=== PATIENT | female | born 1935 | race Caucasian/White ===

== ENCOUNTER 2017-06-23 00:12 | Emergency (ER) | payer MEDICARE, OTHER, MEDICAID ==
[~2017-06-23] VITALS: Ht 152.4 cm; Wt 90.0 kg
[~2017-06-23 00:12] MED LIST: ACET-1025 PO; ALB0.5UD IH; ALIS150T PO; AMLO5TAB16 PO; ASPI-1265 PO; ATOR20TA66 PO; CALC-793 PO; CLON-527 PO; DOCU100C23 PO; KEN0.1O TP; LEVA15HF4 INH; MAGN400C PO; METF500T PO; NITR0.4T48 SL; OMEP20TA5 PO; SIME125C77 PO; SYN0.1T PO; oxygen INH
[2017-06-23 01:09] LABS: BASOPHILS % (AUTO) 0.2 % (0-1); EOSINOPHILS # (AUTO) 0.1 X10'3 (0-0.9); EOSINOPHILS % (AUTO) 1.3 % (0-6); HEMATOCRIT 33.6 % (35.0-45.0); HEMOGLOBIN 11.2 g/dl (12.0-16.0); LYMPHOCYTES # (AUTO) 1.8 X10'3 (1.1-4.8); LYMPHOCYTES % (AUTO) 26.3 % (21-51); MEAN CORPUSCULAR HEMOGLOBIN 30.8 PG (27.0-31.0); MEAN CORPUSCULAR HGB CONC 33.5 % (33.0-36.5); MEAN CORPUSCULAR VOLUME 92.2 FL (78-98); MEAN PLATELET VOLUME 8.5 FL (7.4-10.4); MONOCYTES # (AUTO) 0.8 X10'3 (0-0.9); MONOCYTES % (AUTO) 11.3 % (2-12); NEUTROPHILS % (AUTO) 60.9 % (42-75); PLATELET COUNT 175 X10'3 (140-440); RED BLOOD COUNT 3.64 X10'6 (4.20-5.60); RED CELL DISTRIBUTION WIDTH 20.2 % (11.5-14.5); WHITE BLOOD COUNT 6.7 X10'3 (4.5-11.0)
[2017-06-23 01:11] LABS: INR 1.2 INR; PROTHROMBIN TIME 12.4 SECONDS (9.0-12.0)
[2017-06-23 01:17] LABS: ALANINE AMINOTRANSFERASE 24 U/L (12-78); ALBUMIN 3.6 G/DL (3.4-5.0); ALBUMIN/GLOBULIN RATIO 0.9 (1.1-1.5); ALKALINE PHOSPHATASE 49 IU/L (46-116); ANION GAP 13 (8-16); ASPARTATE AMINO TRANSFERASE 28 U/L (10-37); BILIRUBIN,TOTAL 0.7 MG/DL (0.1-1.0); BLOOD UREA NITROGEN 12 MG/DL (7-18); BUN/CREATININE RATIO 12.4 (6.6-38.0); CALCIUM 9.4 MG/DL (8.5-10.1); CHLORIDE 100 MMOL/L (99-107); CREATININE 0.97 MG/DL (0.40-0.90); GLUCOSE 150 MG/DL (70-104); POTASSIUM 3.1 MMOL/L (3.5-5.1); SODIUM 140 MMOL/L (135-145); TOTAL CARBON DIOXIDE 26.9 MMOL/L (24-32); TOTAL PROTEIN 7.5 G/DL (6.4-8.2); eGFR 55 ML/MIN
[2017-06-23 01:24] LABS: MAGNESIUM 1.1 MG/DL (1.5-2.4)
[2017-06-23] MEDS ORDERED: carVEDilol 3.125mg tablet PO STA (02:31)
[2017-06-23 02:47] VITALS: BP 154/79
== END 2017-06-23 03:34 | disposition home or self-care (01) ==
LOC: ER 00:12
DX: I49.3 Ventricular premature depolarization (principal); R00.2 Palpitations; I25.10 Atherosclerotic heart disease of native coronary artery without angina pectoris; I11.0 Hypertensive heart disease with heart failure; I50.9 Heart failure, unspecified; J44.9 Chronic obstructive pulmonary disease, unspecified; K21.9 Gastro-esophageal reflux disease without esophagitis; E78.00 Pure hypercholesterolemia, unspecified; E11.9 Type 2 diabetes mellitus without complications; E03.9 Hypothyroidism, unspecified; Z95.1 Presence of aortocoronary bypass graft; Z95.0 Presence of cardiac pacemaker; Z90.710 Acquired absence of both cervix and uterus; Z90.49 Acquired absence of other specified parts of digestive tract; Z60.2 Problems related to living alone; Z88.5 Allergy status to narcotic agent; Z88.2 Allergy status to sulfonamides; Z88.8 Allergy status to other drugs, medicaments and biological substances; Z88.1 Allergy status to other antibiotic agents; Z91.011 Allergy to milk products; Z79.82 Long term (current) use of aspirin; Z79.84 Long term (current) use of oral hypoglycemic drugs
CPT/HCPCS: 36415; 71045; 80053; 83735; 83880; 84484; 85025; 85610; 93005; 99285

== ENCOUNTER 2017-07-10 11:51 | Inpatient (IN) | payer MEDICARE, OTHER, MEDICAID ==
[~2017-07-10] VITALS: Ht 154.9 cm; Wt 89.0 kg
[2017-07-10 12:17] LABS: BASOPHILS % (AUTO) 0.3 % (0-1); EOSINOPHILS # (AUTO) 0.1 X10'3 (0-0.9); EOSINOPHILS % (AUTO) 1.3 % (0-6); HEMOGLOBIN 10.9 g/dl (12.0-16.0); MEAN CORPUSCULAR HEMOGLOBIN 32.2 PG (27.0-31.0); MEAN CORPUSCULAR HGB CONC 34.2 % (33.0-36.5); MEAN CORPUSCULAR VOLUME 94.1 FL (78-98); MEAN PLATELET VOLUME 8.4 FL (7.4-10.4); MONOCYTES % (AUTO) 13.5 % (2-12); NEUTROPHILS # (AUTO) 3.9 X10'3 (1.8-7.7); NEUTROPHILS % (AUTO) 56.9 % (42-75); PLATELET COUNT 189 X10'3 (140-440); RED CELL DISTRIBUTION WIDTH 21.5 % (11.5-14.5)
[2017-07-10 12:22] LABS: INR 1.2 INR; PARTIAL THROMBOPLASTIN TIME 28 SECONDS (22-32); PROTHROMBIN TIME 12.5 SECONDS (9.0-12.0)
[2017-07-10 12:26] LABS: ALANINE AMINOTRANSFERASE 29 U/L (12-78); ALBUMIN 3.3 G/DL (3.4-5.0); ALBUMIN/GLOBULIN RATIO 0.8 (1.1-1.5); ALKALINE PHOSPHATASE 51 IU/L (46-116); ANION GAP 11 (8-16); ASPARTATE AMINO TRANSFERASE 32 U/L (10-37); BILIRUBIN,TOTAL 0.7 MG/DL (0.1-1.0); BLOOD UREA NITROGEN 9 MG/DL (7-18); BUN/CREATININE RATIO 8.2 (6.6-38.0); CALCIUM 9.3 MG/DL (8.5-10.1); CHLORIDE 103 MMOL/L (99-107); GLUCOSE 139 MG/DL (70-104); SODIUM 141 MMOL/L (135-145); TOTAL CARBON DIOXIDE 26.8 MMOL/L (24-32); TOTAL PROTEIN 7.4 G/DL (6.4-8.2); eGFR 48 ML/MIN
[2017-07-10 12:31] LABS: POTASSIUM 2.7 MMOL/L (3.5-5.1)
[2017-07-10] MEDS ORDERED: potassium Cl 20 mEq SR tablet PO STA (12:31)
[2017-07-10] MEDS ORDERED: K and/or MAG REPLACEMENT MC STA (12:31)
[2017-07-10] MEDS ORDERED: potassium Cl 40MEQ/NS 500ml 500 ML IV PRN ×3 (12:35→14:10)
[2017-07-10] MEDS ORDERED: furosemide 40mg/4ml inj IV ONE (12:40)
[2017-07-10 12:44] LABS: PLATELET ESTIMATE NORMAL
[2017-07-10 12:45] LABS: ANISOCYTOSIS 3+; POIKILOCYTOSIS 1+
[2017-07-10 13:05] LABS: MAGNESIUM 1.1 MG/DL (1.5-2.4)
[2017-07-10] MEDS: POTASSIUM 40MEQ/500ML NS ***PERIPHERAL LINE REPLACE IV PRN ×2 (13:38→21:30)
[2017-07-10] MEDS ORDERED: magnesium 4gm in 100ml NS 100 ML IV PRN ×2 (14:00→14:10)
[2017-07-10] MEDS ORDERED: magnesium hydroxide 30ml (MOM) UD suspension PO PRN (14:10)
[2017-07-10] MEDS ORDERED: nitroGLYCERIN 0.4mg SUBLingual tab SL PRN (14:10)
[2017-07-10] MEDS ORDERED: HYDROcodone/acetaminophen 10/325mg tab PO PRN (14:10)
[2017-07-10] MEDS ORDERED: SIMETHICONE 125 MG CAPSULE PO PRN (14:10)
[2017-07-10] MEDS ORDERED: magnesium 2GM in 50ml NS 50 ML IV PRN (14:10)
[2017-07-10] MEDS ORDERED: mag hydrox/Alum hydrox/simeth 30ml oral suspension PO PRN (14:10)
[2017-07-10] MEDS ORDERED: HYDROcodone/acetaminophen 5mg/325mg tablet PO PRN (14:10)
[2017-07-10] MEDS ORDERED: non-formulary drug (Acetaminophen (Tylenol Extra Strength) 1 TAB) PO PRN (14:10)
[2017-07-10] MEDS ORDERED: acetaminophen 325mg tablet PO PRN (14:10)
[2017-07-10] MEDS ORDERED: magnesium Cl slow-release 64mg tablet PO PRN (14:10)
[2017-07-10] MEDS ORDERED: ondansetron/PF 4mg/2ml inj IV PRN (14:10)
[2017-07-10] MEDS ORDERED: potassium Cl 20 mEq SR tablet PO PRN (14:10)
[2017-07-10 14:15] LABS: CLARITY,URINE Clear (Clear); COLOR,URINE Yellow (Yellow); GLUCOSE, URINE Negative (Neg); KETONES,URINE Negative (Neg); LEUKOCYTE ESTERASE ,URINE Negative (Neg); NITRITES, URINE Negative (Neg); OCCULT BLOOD,URINE Trace (Neg); PROTEIN,URINE 300 mg/dl (Neg); UROBILINOGEN,URINE 0.2 E.U/dL (0.2-1.0)
[2017-07-10] MEDS ORDERED: MESSAGE TO PHARMACY PO ONE (14:20)
[2017-07-10] MEDS ORDERED: dextrose 50%-water 50ml dispensing syringe IV PRN ×2 (14:20)
[2017-07-10] MEDS ORDERED: dextrose ORAL solution 15 GM/59 ML bottle PO PRN ×2 (14:20)
[2017-07-10] MEDS ORDERED: glucagon, human recombinant 1mg kit SUBCUT PRN (14:20)
[2017-07-10] MEDS ORDERED: insulin Lispro (HumaLOG) vial - multi-dose SQ SCH (14:20)
[2017-07-10 14:33] LABS: UA COLLECTION TYPE OTHER
[2017-07-10 14:34] LABS: BACTERIA,URINE NONE SEEN /HPF (Neg); MUCUS STRANDS NONE SEEN /LPF (Neg); RBC,URINE 0-2 /HPF (0-2); SQUAMOUS EPITHELIAL CELL,UR FEW /LPF (FEW); WBC,URINE 0-4 /HPF (0-4)
[2017-07-10] MEDS ORDERED: albuterol 2.5 MG/3 ML nebule NEB PRN (14:35)
[2017-07-10] MEDS ORDERED: METO100T7 PO (14:36)
[2017-07-10] MEDS ORDERED: EDOX60TA PO (14:36)
[2017-07-10 16:35] LABS: HEMOGLOBIN A1C 6.1 % (4.5-6.2)
[2017-07-10 18:00] VITALS: BP 129/75
[2017-07-10] MEDS ORDERED: heparin, porcine 5000 units/ml vial SQ SCH (20:00)
[2017-07-10] MEDS: insulin glargine (Lantus) pen - multi-dose SQ SCH (21:00)
[2017-07-10 23:00] VITALS: BP_SYST 159; BP_SYST 173; BP_SYST 205; BP_DIAS 104; BP_DIAS 114; BP_DIAS 96
[2017-07-11] VITALS (7 sets, daily range): BP systolic 126–172; BP diastolic 67–96
[2017-07-11] MEDS: acetaminophen 325mg tablet PO PRN ×3 (00:03→22:30)
[2017-07-11] MEDS ORDERED: metoprolol tartrate 50mg tablet PO ONE (00:50)
[2017-07-11 06:11] LABS: BASOPHILS % (AUTO) 0.6 % (0-1); EOSINOPHILS # (AUTO) 0.1 X10'3 (0-0.9); EOSINOPHILS % (AUTO) 0.9 % (0-6); HEMATOCRIT 32.8 % (35.0-45.0); HEMOGLOBIN 10.7 g/dl (12.0-16.0); LYMPHOCYTES # (AUTO) 1.4 X10'3 (1.1-4.8); LYMPHOCYTES % (AUTO) 22.3 % (21-51); MEAN CORPUSCULAR HEMOGLOBIN 30.7 PG (27.0-31.0); MEAN CORPUSCULAR HGB CONC 32.6 % (33.0-36.5); MEAN CORPUSCULAR VOLUME 94.3 FL (78-98); MEAN PLATELET VOLUME 8.6 FL (7.4-10.4); MONOCYTES # (AUTO) 0.6 X10'3 (0-0.9); MONOCYTES % (AUTO) 9.7 % (2-12); NEUTROPHILS # (AUTO) 4.1 X10'3 (1.8-7.7); NEUTROPHILS % (AUTO) 66.5 % (42-75); PLATELET COUNT 218 X10'3 (140-440); RED BLOOD COUNT 3.48 X10'6 (4.20-5.60); RED CELL DISTRIBUTION WIDTH 23.5 % (11.5-14.5); WHITE BLOOD COUNT 6.1 X10'3 (4.5-11.0)
[2017-07-11 06:35] LABS: ALBUMIN 3.1 G/DL (3.4-5.0); ANION GAP 11 (8-16); BLOOD UREA NITROGEN 8 MG/DL (7-18); CALCIUM 8.5 MG/DL (8.5-10.1); CHLORIDE 103 MMOL/L (99-107); GLUCOSE 177 MG/DL (70-104); MAGNESIUM 1.8 MG/DL (1.5-2.4); SODIUM 140 MMOL/L (135-145); TOTAL CARBON DIOXIDE 25.6 MMOL/L (24-32); eGFR 53 ML/MIN
[2017-07-11 06:38] LABS: POTASSIUM 3.6 MMOL/L (3.5-5.1)
[2017-07-11] MEDS: furosemide 40mg/4ml inj IV SCH (07:17)
[2017-07-11] MEDS: magnesium oxide 400mg tablet PO SCH (07:17)
[2017-07-11] MEDS: atorvastatin 20mg tablet PO SCH (07:17)
[2017-07-11] MEDS: pantoprazole 40mg Tablet.DR PO SCH (07:17)
[2017-07-11] MEDS: levoTHYROXINE 125mcg tablet PO SCH (07:17)
[2017-07-11] MEDS: K and/or MAG REPLACEMENT MC SCH (07:18)
[2017-07-11] MEDS: docusate sod 100mg capsule PO SCH (07:20)
[2017-07-11] MEDS: aspirin 81mg tab.chew PO SCH (07:20)
[2017-07-11] MEDS ORDERED: amLODIPine 5mg tablet PO SCH (08:00)
[2017-07-11] MEDS ORDERED: pneumococcal 23-VAL P-sac vacc 25 mcg/0.5ml vial IMVAC ONE (10:00)
[2017-07-11] MEDS: insulin glargine (Lantus) pen - multi-dose SQ SCH (21:00)
[2017-07-12] VITALS (7 sets, daily range): BP systolic 117–162; BP diastolic 67–84
[2017-07-12 05:33] LABS: BASOPHILS % (AUTO) 0.8 % (0-1); EOSINOPHILS # (AUTO) 0.1 X10'3 (0-0.9); EOSINOPHILS % (AUTO) 3.3 % (0-6); HEMATOCRIT 30.5 % (35.0-45.0); LYMPHOCYTES # (AUTO) 1.5 X10'3 (1.1-4.8); MEAN CORPUSCULAR HEMOGLOBIN 30.9 PG (27.0-31.0); MEAN CORPUSCULAR HGB CONC 32.9 % (33.0-36.5); MEAN CORPUSCULAR VOLUME 93.8 FL (78-98); MEAN PLATELET VOLUME 8.3 FL (7.4-10.4); MONOCYTES # (AUTO) 0.5 X10'3 (0-0.9); MONOCYTES % (AUTO) 12.9 % (2-12); NEUTROPHILS # (AUTO) 1.7 X10'3 (1.8-7.7); PLATELET COUNT 174 X10'3 (140-440); RED BLOOD COUNT 3.25 X10'6 (4.20-5.60); RED CELL DISTRIBUTION WIDTH 22.6 % (11.5-14.5); WHITE BLOOD COUNT 3.9 X10'3 (4.5-11.0)
[2017-07-12 05:56] LABS: ALBUMIN 3.1 G/DL (3.4-5.0); ANION GAP 10 (8-16); BLOOD UREA NITROGEN 8 MG/DL (7-18); BUN/CREATININE RATIO 8.9 (6.6-38.0); CALCIUM 8.6 MG/DL (8.5-10.1); CHLORIDE 103 MMOL/L (99-107); GLUCOSE 120 MG/DL (70-104); MAGNESIUM 1.4 MG/DL (1.5-2.4); SODIUM 143 MMOL/L (135-145); TOTAL CARBON DIOXIDE 29.8 MMOL/L (24-32); eGFR 60 ML/MIN
[2017-07-12 05:59] LABS: POTASSIUM 2.7 MMOL/L (3.5-5.1)
[2017-07-12] MEDS: pantoprazole 40mg Tablet.DR PO SCH (07:40)
[2017-07-12] MEDS: atorvastatin 20mg tablet PO SCH (07:40)
[2017-07-12] MEDS: aspirin 81mg tab.chew PO SCH (07:41)
[2017-07-12] MEDS: magnesium oxide 400mg tablet PO SCH ×2 (07:41→21:33)
[2017-07-12] MEDS: docusate sod 100mg capsule PO SCH (07:41)
[2017-07-12] MEDS: levoTHYROXINE 125mcg tablet PO SCH (07:41)
[2017-07-12] MEDS: potassium Cl 20 mEq SR tablet PO PRN ×2 (07:42→12:03)
[2017-07-12] MEDS: furosemide 40mg/4ml inj IV SCH (07:43)
[2017-07-12] MEDS: K and/or MAG REPLACEMENT MC SCH (07:45)
[2017-07-12] MEDS: potassium Cl 20 mEq SR tablet PO SCH ×2 (17:09→23:14)
[2017-07-12] MEDS: insulin glargine (Lantus) pen - multi-dose SQ SCH (21:00)
[2017-07-13 05:33] LABS: BASOPHILS % (AUTO) 0.7 % (0-1); EOSINOPHILS # (AUTO) 0.2 X10'3 (0-0.9); HEMATOCRIT 31.6 % (35.0-45.0); HEMOGLOBIN 10.3 g/dl (12.0-16.0); LYMPHOCYTES # (AUTO) 1.4 X10'3 (1.1-4.8); LYMPHOCYTES % (AUTO) 24.4 % (21-51); MEAN CORPUSCULAR HEMOGLOBIN 30.8 PG (27.0-31.0); MEAN CORPUSCULAR HGB CONC 32.6 % (33.0-36.5); MEAN CORPUSCULAR VOLUME 94.5 FL (78-98); MEAN PLATELET VOLUME 8.4 FL (7.4-10.4); MONOCYTES # (AUTO) 0.8 X10'3 (0-0.9); MONOCYTES % (AUTO) 14.7 % (2-12); NEUTROPHILS # (AUTO) 3.2 X10'3 (1.8-7.7); NEUTROPHILS % (AUTO) 57.2 % (42-75); PLATELET COUNT 188 X10'3 (140-440); RED BLOOD COUNT 3.34 X10'6 (4.20-5.60); RED CELL DISTRIBUTION WIDTH 22.2 % (11.5-14.5); WHITE BLOOD COUNT 5.6 X10'3 (4.5-11.0)
[2017-07-13 05:52] LABS: ANION GAP 8 (8-16); BLOOD UREA NITROGEN 9 MG/DL (7-18); CALCIUM 8.7 MG/DL (8.5-10.1); CHLORIDE 104 MMOL/L (99-107); GLUCOSE 115 MG/DL (70-104); MAGNESIUM 1.5 MG/DL (1.5-2.4); POTASSIUM 3.3 MMOL/L (3.5-5.1); SODIUM 142 MMOL/L (135-145); TOTAL CARBON DIOXIDE 29.7 MMOL/L (24-32); eGFR 60 ML/MIN
[2017-07-13] MEDS: docusate sod 100mg capsule PO SCH (08:00)
[2017-07-13] MEDS ORDERED: furosemide 20MG tablet PO SCH (08:00)
[2017-07-13] MEDS: magnesium oxide 400mg tablet PO SCH (08:05)
[2017-07-13] MEDS: aspirin 81mg tab.chew PO SCH (08:06)
[2017-07-13] MEDS: levoTHYROXINE 125mcg tablet PO SCH (08:06)
[2017-07-13] MEDS: potassium Cl 20 mEq SR tablet PO SCH (08:07)
[2017-07-13] MEDS: atorvastatin 20mg tablet PO SCH (08:10)
[2017-07-13] MEDS: pantoprazole 40mg Tablet.DR PO SCH (08:36)
[2017-07-13] MEDS ORDERED: POTA20TA10 PO (12:38)
[2017-07-13] MEDS ORDERED: FURO20TA4 PO (12:38)
[2017-07-13] MEDS ORDERED: LEVO125T8 PO (12:38)
== END 2017-07-13 15:39 | disposition home health service (06) | DRG 640 ==
LOC: ER 11:52 → ED HOLD 13:21 → EDBEDREQ 14:14 → SUR 3N 16:53
PROVIDERS: ADMIT Internal Medicine; ATTEND Internal Medicine
PROC: 3E0234Z Introduction of Serum, Toxoid and Vaccine into Muscle, Percutaneous Approach (ICD-10-PCS; principal; 2017-07-11)
DX: E87.6 Hypokalemia (principal); I50.23 Acute on chronic systolic (congestive) heart failure; I48.2 Chronic atrial fibrillation; D64.9 Anemia, unspecified; E83.42 Hypomagnesemia; E11.9 Type 2 diabetes mellitus without complications; E03.9 Hypothyroidism, unspecified; E78.5 Hyperlipidemia, unspecified; I11.0 Hypertensive heart disease with heart failure; J44.9 Chronic obstructive pulmonary disease, unspecified; I25.10 Atherosclerotic heart disease of native coronary artery without angina pectoris; K21.9 Gastro-esophageal reflux disease without esophagitis; F41.9 Anxiety disorder, unspecified; Z60.2 Problems related to living alone; Z90.49 Acquired absence of other specified parts of digestive tract; Z90.710 Acquired absence of both cervix and uterus; Z95.0 Presence of cardiac pacemaker; Z95.1 Presence of aortocoronary bypass graft; Z95.3 Presence of xenogenic heart valve; Z88.1 Allergy status to other antibiotic agents; Z88.2 Allergy status to sulfonamides; Z88.5 Allergy status to narcotic agent; Z91.011 Allergy to milk products; Z82.49 Family history of ischemic heart disease and other diseases of the circulatory system; Z23 Encounter for immunization
CPT/HCPCS: 36415; 71045; 80048; 80053; 81001; 82948; 83036; 83735; 83880; 84132; 84443; 84484; 85025; 85610; 85730; 87070; 93005; 93308; 97110; 97116; 97162; 99285; J1815; J1940; J3475; J3480; J7030

== ENCOUNTER 2018-02-27 01:42 | Inpatient (IN) | payer MEDICARE, OTHER, MEDICAID ==
[~2018-02-27] VITALS: Ht 162.6 cm; Wt 80.0 kg
[~2018-02-27 01:42] MED LIST changes: -ALIS150T PO; -AMLO5TAB16 PO; -ASPI-1265 PO; -ATOR20TA66 PO; -CLON-527 PO; -DOCU100C23 PO; +EDOX60TA PO; +FURO20TA4 PO; -KEN0.1O TP; +LEVO125T8 PO; -MAGN400C PO; +METO100T7 PO; +POTA20TA10 PO; -SIME125C77 PO; -SYN0.1T PO
[2018-02-27] MEDS ORDERED: aspirin 81mg tab.chew PO ONE (02:25)
[2018-02-27 03:05] LABS: BASOPHILS # (AUTO) 0.1 X10'3 (0-0.2); BASOPHILS % (AUTO) 0.7 % (0-1); EOSINOPHILS # (AUTO) 0.3 X10'3 (0-0.9); EOSINOPHILS % (AUTO) 3.3 % (0-6); HEMATOCRIT 35.8 % (35.0-45.0); HEMOGLOBIN 12.1 g/dl (12.0-16.0); LYMPHOCYTES # (AUTO) 1.2 X10'3 (1.1-4.8); LYMPHOCYTES % (AUTO) 13.3 % (21-51); MEAN CORPUSCULAR HEMOGLOBIN 32.4 PG (27.0-31.0); MEAN CORPUSCULAR HGB CONC 33.7 % (33.0-36.5); MEAN PLATELET VOLUME 9.2 FL (7.4-10.4); MONOCYTES # (AUTO) 0.7 X10'3 (0-0.9); MONOCYTES % (AUTO) 7.7 % (2-12); NEUTROPHILS # (AUTO) 6.6 X10'3 (1.8-7.7); PLATELET COUNT 154 X10'3 (140-440); RED BLOOD COUNT 3.73 X10'6 (4.20-5.60); RED CELL DISTRIBUTION WIDTH 21.9 % (11.5-14.5); WHITE BLOOD COUNT 8.8 X10'3 (4.5-11.0)
[2018-02-27 03:22] LABS: ALANINE AMINOTRANSFERASE 30 U/L (12-78); ALBUMIN 3.7 G/DL (3.4-5.0); ALBUMIN/GLOBULIN RATIO 0.9 (1.1-1.5); ALKALINE PHOSPHATASE 62 IU/L (46-116); ANION GAP 10 (8-16); ASPARTATE AMINO TRANSFERASE 29 U/L (10-37); BILIRUBIN,TOTAL 0.7 MG/DL (0.1-1.0); BLOOD UREA NITROGEN 18 MG/DL (7-18); BUN/CREATININE RATIO 14.8 (6.6-38.0); CALCIUM 9.8 MG/DL (8.5-10.1); CHLORIDE 100 MMOL/L (99-107); CREATININE 1.22 MG/DL (0.40-0.90); GLUCOSE 265 MG/DL (70-104); POTASSIUM 4.2 MMOL/L (3.5-5.1); SODIUM 136 MMOL/L (135-145); TOTAL CARBON DIOXIDE 26.1 MMOL/L (24-32); TOTAL PROTEIN 7.8 G/DL (6.4-8.2); eGFR 42 ML/MIN
[2018-02-27 03:30] LABS: MAGNESIUM 1.6 MG/DL (1.5-2.4)
[2018-02-27] MEDS ORDERED: heparin 10,000 units/1 ML INJ IV ONE (03:30)
[2018-02-27 03:37] LABS: ANISOCYTOSIS 3+; ELLIPTOCYTES FEW; PLATELET ESTIMATE NORMAL; POLYCHROMASIA FEW
[2018-02-27 03:42] LABS: INR 1.6 INR; PARTIAL THROMBOPLASTIN TIME 30 SECONDS (22-32); PROTHROMBIN TIME 16.1 SECONDS (9.0-12.0)
[2018-02-27] MEDS ORDERED: magnesium hydroxide 30ml (MOM) UD suspension PO PRN (04:25)
[2018-02-27] MEDS ORDERED: ondansetron/PF 4mg/2ml inj IV PRN (04:25)
[2018-02-27] MEDS ORDERED: MESSAGE TO PHARMACY PO ONE (04:25)
[2018-02-27] MEDS ORDERED: morphine 2 MG/ML inj. syringe IV PRN ×2 (04:25)
[2018-02-27] MEDS ORDERED: glucagon, human recombinant 1mg kit SUBCUT PRN (04:25)
[2018-02-27] MEDS ORDERED: dextrose 50%-water 50ml dispensing syringe IV PRN ×2 (04:25)
[2018-02-27] MEDS ORDERED: insulin Lispro (HumaLOG) vial - multi-dose SQ SCH (04:25)
[2018-02-27] MEDS ORDERED: diphenhydrAMINE 50 mg/ml inj IV PRN (04:25)
[2018-02-27] MEDS ORDERED: bisacodyl 10mg suppository rectal RC PRN (04:25)
[2018-02-27] MEDS ORDERED: diphenhydrAMINE 25mg capsule PO PRN (04:25)
[2018-02-27] MEDS ORDERED: acetaminophen 325mg tablet PO PRN ×2 (04:25)
[2018-02-27] MEDS ORDERED: dextrose ORAL solution 15 GM/59 ML bottle PO PRN ×2 (04:25)
[2018-02-27] MEDS ORDERED: metoclopramide 5 mg/ml inj IV PRN (04:25)
[2018-02-27] MEDS ORDERED: acetaminophen 650mg rectal suppository RC PRN (04:25)
[2018-02-27] MEDS ORDERED: mag hydrox/Alum hydrox/simeth 30ml oral suspension PO PRN (04:25)
[2018-02-27 04:58] LABS: D-DIMER 0.32 MG/L FEU (0-0.50)
[2018-02-27] MEDS ORDERED: albuterol 2.5 mg/0.5ml nebule NEB PRN (07:20)
[2018-02-27] MEDS ORDERED: non-formulary drug (Acetaminophen (Tylenol Extra Strength) 1 TAB) PO PRN (07:20)
[2018-02-27] MEDS ORDERED: non-formulary drug (Levalbuterol Tartrate (Xopenex Hfa) 2 PUFFS) INH PRN (07:20)
[2018-02-27] MEDS ORDERED: nitroGLYCERIN 0.4mg SUBLingual tab SL PRN (07:20)
[2018-02-27] MEDS ORDERED: METOPROLOL SUCCINATE PO SCH (08:00)
[2018-02-27] MEDS ORDERED: EDOXABAN TOSYLATE PO SCH (08:00)
[2018-02-27] MEDS: pantoprazole 40mg Tablet.DR PO SCH (09:51)
[2018-02-27] MEDS: calcium carbonate/vitamin D3 tablet PO SCH (09:51)
[2018-02-27] MEDS: docusate sod 100mg capsule PO SCH ×2 (09:52→20:58)
[2018-02-27] MEDS: bumetanide 0.25mg/ml 4ml vial IV SCH (09:54)
[2018-02-27] MEDS ORDERED: albuterol 2.5 MG/3 ML nebule NEB PRN (10:15)
[2018-02-27 12:27] LABS: PARTIAL THROMBOPLASTIN TIME 35 SECONDS (22-32)
[2018-02-27] MEDS: heparin 10,000 units/1 ML INJ IV PRN ×2 (12:48→23:58)
[2018-02-27 13:40] VITALS: BP 132/88
[2018-02-27 15:00] VITALS: BP 128/62
[2018-02-27 18:00] VITALS: BP 115/62
[2018-02-27] MEDS ORDERED: temazepam 15mg capsule PO PRN (21:00)
[2018-02-27 22:00] VITALS: BP 123/67
[2018-02-28 02:00] VITALS: BP 126/68
[2018-02-28 05:07] LABS: BASOPHILS # (AUTO) 0.1 X10'3 (0-0.2); BASOPHILS % (AUTO) 0.9 % (0-1); EOSINOPHILS # (AUTO) 0.4 X10'3 (0-0.9); EOSINOPHILS % (AUTO) 5.6 % (0-6); HEMATOCRIT 36.1 % (35.0-45.0); HEMOGLOBIN 12.3 g/dl (12.0-16.0); LYMPHOCYTES # (AUTO) 2.3 X10'3 (1.1-4.8); LYMPHOCYTES % (AUTO) 30.4 % (21-51); MEAN CORPUSCULAR HEMOGLOBIN 32.8 PG (27.0-31.0); MEAN CORPUSCULAR VOLUME 96.3 FL (78-98); MEAN PLATELET VOLUME 9.4 FL (7.4-10.4); MONOCYTES # (AUTO) 0.7 X10'3 (0-0.9); MONOCYTES % (AUTO) 9.5 % (2-12); NEUTROPHILS # (AUTO) 4.1 X10'3 (1.8-7.7); NEUTROPHILS % (AUTO) 53.6 % (42-75); PLATELET COUNT 149 X10'3 (140-440); RED BLOOD COUNT 3.75 X10'6 (4.20-5.60); RED CELL DISTRIBUTION WIDTH 21.9 % (11.5-14.5); WHITE BLOOD COUNT 7.7 X10'3 (4.5-11.0)
[2018-02-28 05:50] LABS: ALANINE AMINOTRANSFERASE 21 U/L (12-78); ALBUMIN 3.4 G/DL (3.4-5.0); ALBUMIN/GLOBULIN RATIO 0.9 (1.1-1.5); ALKALINE PHOSPHATASE 36 IU/L (46-116); ANION GAP 8 (8-16); ASPARTATE AMINO TRANSFERASE 25 U/L (10-37); BLOOD UREA NITROGEN 17 MG/DL (7-18); BUN/CREATININE RATIO 14.8 (6.6-38.0); CHLORIDE 100 MMOL/L (99-107); CHOL/HDL RATIO 3.3 (0.00-4.99); CHOLESTEROL 100 MG/DL (0-200); CREATININE 1.15 MG/DL (0.40-0.90); GLUCOSE 159 MG/DL (70-104); HDL CHOLESTEROL 30 MG/DL (35-60); LDL CHOLESTEROL 59 MG/DL (50-100); POTASSIUM 3.6 MMOL/L (3.5-5.1); SODIUM 138 MMOL/L (135-145); TOTAL PROTEIN 7.2 G/DL (6.4-8.2); TRIGLYCERIDES 99 MG/DL (20-135); eGFR 45 ML/MIN
[2018-02-28 06:00] VITALS: BP_SYST 102; BP_SYST 119; BP_DIAS 61; BP_DIAS 73
[2018-02-28] MEDS ORDERED: levoTHYROXINE 125mcg tablet PO SCH (07:00)
[2018-02-28] MEDS: aspirin 81mg tab.chew PO SCH (07:42)
[2018-02-28] MEDS: metoprolol succinate 25mg (24-HOUR) SR. Tablet PO SCH (07:43)
[2018-02-28] MEDS: pantoprazole 40mg Tablet.DR PO SCH (07:43)
[2018-02-28] MEDS: bumetanide 0.25mg/ml 4ml vial IV SCH (07:44)
[2018-02-28] MEDS: calcium carbonate/vitamin D3 tablet PO SCH (07:44)
[2018-02-28] MEDS: levoTHYROXINE 75mcg tablet PO SCH (07:44)
[2018-02-28] MEDS: docusate sod 100mg capsule PO SCH ×2 (07:44→20:11)
[2018-02-28] MEDS: SAVAYSA 60 MG PO SCH (07:54)
[2018-02-28] MEDS: atorvastatin 20mg tablet PO SCH (10:18)
[2018-02-28] MEDS: clopidogrel 75mg tablet PO SCH (10:18)
[2018-02-28 11:00] VITALS: BP 127/55
[2018-02-28] MEDS: heparin 10,000 units/1 ML INJ IV PRN (13:32)
[2018-02-28 15:00] VITALS: BP 117/65
[2018-02-28 19:00] VITALS: BP 131/47
[2018-02-28 23:00] VITALS: BP 130/67
[2018-03-01 03:00] VITALS: BP 155/72
[2018-03-01 05:09] LABS: BASOPHILS # (AUTO) 0.1 X10'3 (0-0.2); BASOPHILS % (AUTO) 1.2 % (0-1); EOSINOPHILS # (AUTO) 0.5 X10'3 (0-0.9); EOSINOPHILS % (AUTO) 5.5 % (0-6); HEMATOCRIT 36.1 % (35.0-45.0); LYMPHOCYTES # (AUTO) 2.4 X10'3 (1.1-4.8); LYMPHOCYTES % (AUTO) 28.5 % (21-51); MEAN CORPUSCULAR HEMOGLOBIN 32.3 PG (27.0-31.0); MEAN CORPUSCULAR HGB CONC 33.2 % (33.0-36.5); MEAN CORPUSCULAR VOLUME 97.2 FL (78-98); MEAN PLATELET VOLUME 9.4 FL (7.4-10.4); MONOCYTES # (AUTO) 0.8 X10'3 (0-0.9); NEUTROPHILS # (AUTO) 4.6 X10'3 (1.8-7.7); NEUTROPHILS % (AUTO) 54.8 % (42-75); PLATELET COUNT 171 X10'3 (140-440); RED BLOOD COUNT 3.72 X10'6 (4.20-5.60); WHITE BLOOD COUNT 8.4 X10'3 (4.5-11.0)
[2018-03-01 05:40] LABS: ALANINE AMINOTRANSFERASE 23 U/L (12-78); ALBUMIN 3.5 G/DL (3.4-5.0); ALBUMIN/GLOBULIN RATIO 0.9 (1.1-1.5); ALKALINE PHOSPHATASE 41 IU/L (46-116); ANION GAP 7 (8-16); ASPARTATE AMINO TRANSFERASE 17 U/L (10-37); BILIRUBIN,TOTAL 0.9 MG/DL (0.1-1.0); BLOOD UREA NITROGEN 19 MG/DL (7-18); BUN/CREATININE RATIO 15.8 (6.6-38.0); CALCIUM 9.5 MG/DL (8.5-10.1); CHLORIDE 100 MMOL/L (99-107); GLUCOSE 148 MG/DL (70-104); POTASSIUM 3.2 MMOL/L (3.5-5.1); SODIUM 138 MMOL/L (135-145); TOTAL CARBON DIOXIDE 30.8 MMOL/L (24-32); TOTAL PROTEIN 7.2 G/DL (6.4-8.2); eGFR 43 ML/MIN
[2018-03-01 06:00] VITALS: BP 145/76
[2018-03-01] MEDS ORDERED: magnesium Cl slow-release 64mg tablet PO PRN (07:30)
[2018-03-01] MEDS ORDERED: potassium Cl 40MEQ/NS 500ml 500 ML IV PRN ×2 (07:30)
[2018-03-01] MEDS ORDERED: potassium Cl 20 mEq SR tablet PO PRN (07:30)
[2018-03-01] MEDS ORDERED: magnesium 4gm in 100ml NS 100 ML IV PRN (07:30)
[2018-03-01] MEDS: atorvastatin 20mg tablet PO SCH ×2 (07:41→08:00)
[2018-03-01] MEDS: pantoprazole 40mg Tablet.DR PO SCH ×2 (07:41→08:00)
[2018-03-01] MEDS: clopidogrel 75mg tablet PO SCH ×2 (07:41→08:00)
[2018-03-01] MEDS: levoTHYROXINE 75mcg tablet PO SCH (07:41)
[2018-03-01] MEDS: docusate sod 100mg capsule PO SCH ×2 (07:41→08:00)
[2018-03-01] MEDS: metoprolol succinate 25mg (24-HOUR) SR. Tablet PO SCH ×2 (07:41→08:00)
[2018-03-01] MEDS: bumetanide 0.25mg/ml 4ml vial IV SCH (07:42)
[2018-03-01] MEDS: potassium Cl 20 mEq SR tablet PO PRN ×3 (07:42→16:38)
[2018-03-01] MEDS: calcium carbonate/vitamin D3 tablet PO SCH ×2 (07:42→08:00)
[2018-03-01] MEDS: SAVAYSA 60 MG PO SCH (07:42)
[2018-03-01] MEDS: aspirin 81mg tab.chew PO SCH (07:42)
[2018-03-01 11:00] VITALS: BP 140/62
[2018-03-01] MEDS ORDERED: DIGO250T PO (12:10)
[2018-03-01] MEDS ORDERED: CLOP75TA35 PO (14:18)
[2018-03-01] MEDS ORDERED: ATOR20TA66 PO (14:18)
[2018-03-02 06:05] LABS: TRIIODOTHYRONINE (T3) 84 ng/dL (71-180)
== END 2018-03-01 16:40 | disposition home health service (06) | DRG 280 ==
LOC: ER 01:43 → ED HOLD 04:22 → PCU 3S 13:46
PROVIDERS: ADMIT Family Medicine; ATTEND Family Medicine
DX: I21.4 Non-ST elevation (NSTEMI) myocardial infarction (principal); I50.23 Acute on chronic systolic (congestive) heart failure; N17.9 Acute kidney failure, unspecified; I25.10 Atherosclerotic heart disease of native coronary artery without angina pectoris; E03.9 Hypothyroidism, unspecified; Z95.1 Presence of aortocoronary bypass graft; I44.7 Left bundle-branch block, unspecified; J44.9 Chronic obstructive pulmonary disease, unspecified; I48.2 Chronic atrial fibrillation; F41.9 Anxiety disorder, unspecified; I27.20 Pulmonary hypertension, unspecified; E78.00 Pure hypercholesterolemia, unspecified; K21.9 Gastro-esophageal reflux disease without esophagitis; E11.65 Type 2 diabetes mellitus with hyperglycemia; E78.5 Hyperlipidemia, unspecified; I11.0 Hypertensive heart disease with heart failure; Z95.5 Presence of coronary angioplasty implant and graft; Z95.2 Presence of prosthetic heart valve; Z99.81 Dependence on supplemental oxygen; Z90.49 Acquired absence of other specified parts of digestive tract; Z90.710 Acquired absence of both cervix and uterus; Z88.5 Allergy status to narcotic agent; Z88.2 Allergy status to sulfonamides; Z88.8 Allergy status to other drugs, medicaments and biological substances; Z88.1 Allergy status to other antibiotic agents; Z91.011 Allergy to milk products; Z79.02 Long term (current) use of antithrombotics/antiplatelets; Z79.01 Long term (current) use of anticoagulants; Z79.2 Long term (current) use of antibiotics; Z79.899 Other long term (current) drug therapy; Z82.49 Family history of ischemic heart disease and other diseases of the circulatory system
CPT/HCPCS: 36415; 71045; 80053; 80061; 82948; 83036; 83690; 83735; 83880; 84439; 84443; 84479; 84480; 84484; 85025; 85379; 85610; 85730; 87070; 93005; 93306; 94760; 96374; 99291; J1644; J3490

== ENCOUNTER 2018-07-26 03:42 | Emergency (ER) | payer MEDICARE, OTHER, MEDICAID ==
[~2018-07-26] VITALS: Ht 154.9 cm; Wt 6.8 kg
[~2018-07-26 03:42] MED LIST changes: +ATOR20TA66 PO; +CLOP75TA35 PO; +DIGO250T PO
[2018-07-26] MEDS ORDERED: MAGN400C PO (03:51)
[2018-07-26 04:57] LABS: CLARITY,URINE SLIGHTLY CLOUDY (Clear); COLOR,URINE YELLOW (Yellow); GLUCOSE, URINE NEGATIVE (Neg); KETONES,URINE NEGATIVE (Neg); LEUKOCYTE ESTERASE ,URINE SMALL (Neg); NITRITES, URINE NEGATIVE (Neg); OCCULT BLOOD,URINE SMALL (Neg); PROTEIN,URINE >=300 mg/dl (Neg); UROBILINOGEN,URINE 0.2 E.U/dL (0.2-1.0)
[2018-07-26 04:58] LABS: UA COLLECTION TYPE CLN CATCH MIDSTREAM
[2018-07-26 05:05] LABS: ALANINE AMINOTRANSFERASE 46 U/L (12-78); ALBUMIN 3.8 G/DL (3.4-5.0); ALKALINE PHOSPHATASE 58 IU/L (46-116); ANION GAP 14 (8-16); ASPARTATE AMINO TRANSFERASE 52 U/L (10-37); BASOPHILS # (AUTO) 0.1 X10'3 (0-0.2); BASOPHILS % (AUTO) 0.6 % (0-1); BILIRUBIN,TOTAL 0.8 MG/DL (0.1-1.0); BLOOD UREA NITROGEN 25 MG/DL (7-18); BUN/CREATININE RATIO 20.8 (6.6-38.0); CALCIUM 9.2 MG/DL (8.5-10.1); CHLORIDE 103 MMOL/L (99-107); EOSINOPHILS # (AUTO) 0.4 X10'3 (0-0.9); EOSINOPHILS % (AUTO) 4.1 % (0-6); GLUCOSE 156 MG/DL (70-104); HEMATOCRIT 33.7 % (35.0-45.0); HEMOGLOBIN 10.8 g/dl (12.0-16.0); LYMPHOCYTES # (AUTO) 0.8 X10'3 (1.1-4.8); LYMPHOCYTES % (AUTO) 9.3 % (21-51); MEAN CORPUSCULAR HEMOGLOBIN 30.6 PG (27.0-31.0); MEAN CORPUSCULAR HGB CONC 32.1 g/dL (33.0-36.5); MEAN CORPUSCULAR VOLUME 95.3 FL (78-98); MONOCYTES # (AUTO) 0.6 X10'3 (0-0.9); MONOCYTES % (AUTO) 6.5 % (2-12); NEUTROPHILS # (AUTO) 7.1 X10'3 (1.8-7.7); NEUTROPHILS % (AUTO) 79.5 % (42-75); PLATELET COUNT 157 X10'3 (140-440); POTASSIUM 4.6 MMOL/L (3.5-5.1); RED BLOOD COUNT 3.54 X10'6 (4.20-5.60); RED CELL DISTRIBUTION WIDTH 19.5 % (11.5-14.5); SODIUM 139 MMOL/L (135-145); TOTAL CARBON DIOXIDE 22.1 MMOL/L (24-32); TOTAL PROTEIN 7.6 G/DL (6.4-8.2); WHITE BLOOD COUNT 8.9 X10'3 (4.5-11.0); eGFR 43 ML/MIN
[2018-07-26 05:06] LABS: FINE GRANULAR CAST 0-3 /LPF (NEGATIVE)
[2018-07-26 05:07] LABS: RBC,URINE 0-2 /HPF (0-2); WBC,URINE 20-30 /HPF (0-4)
[2018-07-26 05:08] LABS: AMORPHOUS URATES 1+; BACTERIA,URINE 1+ /HPF (Neg); LIPASE 140 U/L (73-393); MUCUS STRANDS MODERATE /LPF (Neg); SQUAMOUS EPITHELIAL CELL,UR MODERATE /LPF (FEW); TROPONIN I 0.06 NG/ML (0.0-0.05)
--- NOTE | 2018-07-26 07:34 | NUR ---
Dr. Myers stated 3hr troponin recheck and discharge. New order for repeat cardiac troponin one time now.
[2018-07-26 08:48] VITALS: BP 147/87
== END 2018-07-26 09:32 | disposition home or self-care (01) ==
LOC: ER 03:43
DX: R16.0 Hepatomegaly, not elsewhere classified (principal); I25.10 Atherosclerotic heart disease of native coronary artery without angina pectoris; I11.0 Hypertensive heart disease with heart failure; I50.9 Heart failure, unspecified; E78.00 Pure hypercholesterolemia, unspecified; I25.2 Old myocardial infarction; J44.9 Chronic obstructive pulmonary disease, unspecified; K21.9 Gastro-esophageal reflux disease without esophagitis; E11.9 Type 2 diabetes mellitus without complications; E03.9 Hypothyroidism, unspecified; Z90.49 Acquired absence of other specified parts of digestive tract; Z90.710 Acquired absence of both cervix and uterus; Z88.1 Allergy status to other antibiotic agents; Z88.2 Allergy status to sulfonamides; Z91.011 Allergy to milk products; Z88.5 Allergy status to narcotic agent; Z88.8 Allergy status to other drugs, medicaments and biological substances; Z79.84 Long term (current) use of oral hypoglycemic drugs; Z79.899 Other long term (current) drug therapy; Z60.2 Problems related to living alone
CPT/HCPCS: 36415; 74176; 80053; 81001; 83690; 84484; 85025; 87088; 93005; 99284

== ENCOUNTER 2018-08-26 03:15 | Inpatient (IN) | payer MEDICARE, OTHER, MEDICAID | END 2018-09-02 20:15 | disposition short-term general hospital (02) | LOC: ED HOLD 12:00 → ER 03:15 → ORTHO 4S 08:37 → ED HOLD 07:58 → ORTHO 4S 12:00 | DX: I21.4 Non-ST elevation (NSTEMI) myocardial infarction (principal); I50.23 Acute on chronic systolic (congestive) heart failure; Z98.61 Coronary angioplasty status; Z95.2 Presence of prosthetic heart valve; I25.10 Atherosclerotic heart disease of native coronary artery without angina pectoris; I48.2 Chronic atrial fibrillation; Z79.01 Long term (current) use of anticoagulants ==

== ENCOUNTER 2018-10-26 11:49 | Outpatient (CLI) | payer MEDICARE, OTHER, MEDICAID ==
[~2018-10-26 11:49] MED LIST changes: -ALB0.5UD IH; -CALC-793 PO; -CLOP75TA35 PO; -DIGO250T PO; -EDOX60TA PO; +KEN0.1O TP; +MAGN400C PO; -NITR0.4T48 SL; +NITR0.4T51 SL; +RIVA20TA PO
== END 2018-10-26 23:59 | disposition home or self-care (01) ==
LOC: VAS 11:49
PROVIDERS: ATTEND Family Medicine
DX: M79.672 Pain in left foot (principal); Z95.1 Presence of aortocoronary bypass graft; R60.0 Localized edema
CPT/HCPCS: 93970

== ENCOUNTER 2019-02-23 03:59 | Inpatient (IN) | payer MEDICARE, OTHER, MEDICAID ==
[~2019-02-23] VITALS: Ht 165.1 cm; Wt 77.0 kg
[2019-02-23 04:33] LABS: BASOPHILS # (AUTO) 0.1 X10'3 (0-0.2); BASOPHILS % (AUTO) 1.4 % (0-1); EOSINOPHILS # (AUTO) 0.4 X10'3 (0-0.9); EOSINOPHILS % (AUTO) 6.1 % (0-6); HEMATOCRIT 36.3 % (35.0-45.0); HEMOGLOBIN 11.8 g/dl (12.0-16.0); LYMPHOCYTES # (AUTO) 1.5 X10'3 (1.1-4.8); LYMPHOCYTES % (AUTO) 24.5 % (21-51); MEAN CORPUSCULAR HEMOGLOBIN 29.8 PG (27.0-31.0); MEAN CORPUSCULAR HGB CONC 32.6 g/dL (33.0-36.5); MEAN CORPUSCULAR VOLUME 91.3 FL (78-98); MEAN PLATELET VOLUME 7.7 FL (7.4-10.4); MONOCYTES # (AUTO) 0.4 X10'3 (0-0.9); MONOCYTES % (AUTO) 6.3 % (2-12); NEUTROPHILS # (AUTO) 3.7 X10'3 (1.8-7.7); NEUTROPHILS % (AUTO) 61.7 % (42-75); PLATELET COUNT 127 X10'3 (140-440); RED BLOOD COUNT 3.97 X10'6 (4.20-5.60); RED CELL DISTRIBUTION WIDTH 25.1 % (11.5-14.5); WHITE BLOOD COUNT 5.9 X10'3 (4.5-11.0)
[2019-02-23 04:47] LABS: PARTIAL THROMBOPLASTIN TIME 28 SECONDS (22-32)
[2019-02-23 04:53] LABS: ALANINE AMINOTRANSFERASE 28 U/L (12-78); ALBUMIN 3.7 G/DL (3.4-5.0); ALBUMIN/GLOBULIN RATIO 0.9 (1.1-1.5); ALKALINE PHOSPHATASE 79 IU/L (46-116); ANION GAP 9 (8-16); ASPARTATE AMINO TRANSFERASE 20 U/L (10-37); BILIRUBIN,TOTAL 0.5 MG/DL (0.1-1.0); BLOOD UREA NITROGEN 27 MG/DL (7-18); BUN/CREATININE RATIO 23.7 (6.6-38.0); CALCIUM 9.9 MG/DL (8.5-10.1); CHLORIDE 104 MMOL/L (99-107); CREATININE 1.14 MG/DL (0.40-0.90); GLUCOSE 136 MG/DL (70-104); POTASSIUM 4.5 MMOL/L (3.5-5.1); SODIUM 139 MMOL/L (135-145); TOTAL CARBON DIOXIDE 26.2 MMOL/L (24-32); TOTAL PROTEIN 7.8 G/DL (6.4-8.2); eGFR 46 ML/MIN
[2019-02-23] MEDS ORDERED: ondansetron/PF 4mg/2ml inj IV ONE (05:00)
[2019-02-23] MEDS ORDERED: LEVO100T PO (05:07)
[2019-02-23] MEDS ORDERED: APIX5TAB3 PO (05:07)
[2019-02-23] MEDS ORDERED: ondansetron/PF 4mg/2ml inj IV PRN (05:30)
[2019-02-23] MEDS ORDERED: mag hydrox/Alum hydrox/simeth 30ml oral suspension PO PRN (05:30)
[2019-02-23] MEDS ORDERED: nitroGLYCERIN 0.4mg SUBLingual tab SL PRN (05:30)
[2019-02-23] MEDS ORDERED: acetaminophen 325mg tablet PO PRN ×2 (05:30)
[2019-02-23] MEDS ORDERED: magnesium hydroxide 30ml (MOM) UD suspension PO PRN (05:30)
[2019-02-23] MEDS ORDERED: LOSA25TA96 PO (05:48)
--- NOTE | 2019-02-23 05:57 | NUR ---
daughter in law at the BS
[2019-02-23] MEDS ORDERED: albuterol 2.5 MG/3 ML nebule NEB PRN (06:00)
[2019-02-23 06:10] LABS: CLARITY,URINE CLEAR (Clear); COLOR,URINE STRAW (Yellow); GLUCOSE, URINE NEGATIVE (Neg); KETONES,URINE NEGATIVE (Neg); LEUKOCYTE ESTERASE ,URINE NEGATIVE (Neg); NITRITES, URINE NEGATIVE (Neg); OCCULT BLOOD,URINE TRACE-INTACT (Neg); PH,URINE 5.5 (4.8-8.0); PROTEIN,URINE 100 mg/dl (Neg); UA COLLECTION TYPE CLN CATCH MIDSTREAM; UROBILINOGEN,URINE 0.2 E.U/dL (0.2-1.0)
[2019-02-23 06:16] LABS: HYALINE CASTS 0-3 /LPF (NEGATIVE); SQUAMOUS EPITHELIAL CELL,UR FEW /LPF (FEW)
[2019-02-23 06:23] LABS: BACTERIA,URINE FEW /HPF (Neg); RBC,URINE 0-2 /HPF (0-2); WBC,URINE 0-4 /HPF (0-4)
--- NOTE | 2019-02-23 06:48 | NUR ---
Patient in room ED13 to be transferred to U 3026A. I have received report from Joy EDOUARD and had the opportunity to ask questions and assume patient care.
[2019-02-23] MEDS ORDERED: dextrose 50%-water 50ml dispensing syringe IV PRN ×2 (06:50)
[2019-02-23] MEDS ORDERED: dextrose ORAL solution 15 GM/59 ML bottle PO PRN ×2 (06:50)
[2019-02-23] MEDS ORDERED: MESSAGE TO PHARMACY PO ONE (06:50)
[2019-02-23] MEDS ORDERED: insulin Lispro (HumaLOG) vial - multi-dose SQ SCH (06:50)
[2019-02-23] MEDS ORDERED: glucagon, human recombinant 1mg kit SUBCUT PRN (06:50)
--- NOTE | 2019-02-23 06:52 | NUR ---
Patient in room . I have received report from JAVAN Walker and had the opportunity to ask questions and assume patient care.
[2019-02-23 06:57] LABS: ELLIPTOCYTES FEW; PLATELET ESTIMATE DECREASED; SCHISTOCYTES FEW
[2019-02-23 06:58] LABS: ANISOCYTOSIS 3+; BURR CELLS FEW; POLYCHROMASIA FEW
[2019-02-23 07:00] VITALS: BP 126/75
[2019-02-23] MEDS: pantoprazole 40mg Tablet.DR PO SCH (07:44)
[2019-02-23] MEDS: furosemide 20MG tablet PO SCH (07:45)
[2019-02-23] MEDS: potassium Cl 20 mEq SR tablet PO SCH ×2 (07:45→17:59)
[2019-02-23] MEDS: levoTHYROXINE 100mcg tablet PO SCH (07:45)
[2019-02-23] MEDS ORDERED: magnesium oxide 400mg tablet PO SCH (08:00)
[2019-02-23] MEDS ORDERED: atorvastatin 20mg tablet PO SCH (08:00)
[2019-02-23] MEDS: metoprolol succinate 25mg (24-HOUR) SR. Tablet PO SCH (08:00)
[2019-02-23] MEDS ORDERED: apixaban 5mg tablet PO SCH (08:00)
[2019-02-23] MEDS ORDERED: magnesium Cl slow-release 64mg tablet PO PRN (08:45)
[2019-02-23] MEDS ORDERED: potassium Cl 20 mEq SR tablet PO PRN ×2 (08:45)
[2019-02-23] MEDS ORDERED: magnesium 4gm in 100ml NS 100 ML IV PRN (08:45)
[2019-02-23] MEDS ORDERED: potassium CL 10mEq/100ml bag 100 ML IV PRN (08:45)
--- NOTE | 2019-02-23 09:00 | NUR ---
Patient refused scheduled am lipitor and mag oxide and wants to take them at night as she takes them regularly, will call pharmacy to reschedule, refused toprol XL d/t having taken the medication this morning before coming to the ED
[2019-02-23 11:00] VITALS: BP 134/62
[2019-02-23] MEDS ORDERED: LOSA25TA41 PO (13:37)
--- NOTE | 2019-02-23 14:34 | NUR ---
PAGER ID: [phone] MESSAGE: [id number] Jayde Sánchez: Pt has h/o DMII but only has heart healthy diet, do you want to have her on Carb controlled diet? Thanks Aaron [phone]
[2019-02-23 15:00] VITALS: BP 124/58
[2019-02-23] MEDS ORDERED: heparin 10,000 units/1 ML INJ IV PRN (17:35)
[2019-02-23] MEDS ORDERED: heparin 10,000 units/1 ML INJ IV ONE (17:35)
[2019-02-23 18:00] VITALS: BP 125/60
[2019-02-23 18:04] LABS: BASOPHILS # (AUTO) 0.1 X10'3 (0-0.2); BASOPHILS % (AUTO) 1.5 % (0-1); EOSINOPHILS # (AUTO) 0.3 X10'3 (0-0.9); HEMATOCRIT 35.1 % (35.0-45.0); HEMOGLOBIN 11.5 g/dl (12.0-16.0); LYMPHOCYTES # (AUTO) 1.7 X10'3 (1.1-4.8); MEAN CORPUSCULAR HGB CONC 32.8 g/dL (33.0-36.5); MEAN CORPUSCULAR VOLUME 91.5 FL (78-98); MONOCYTES # (AUTO) 0.5 X10'3 (0-0.9); MONOCYTES % (AUTO) 8.4 % (2-12); NEUTROPHILS % (AUTO) 54.1 % (42-75); PLATELET COUNT 135 X10'3 (140-440); RED BLOOD COUNT 3.83 X10'6 (4.20-5.60); RED CELL DISTRIBUTION WIDTH 24.3 % (11.5-14.5); WHITE BLOOD COUNT 5.6 X10'3 (4.5-11.0)
[2019-02-23 18:11] LABS: PARTIAL THROMBOPLASTIN TIME 26 SECONDS (22-32)
--- NOTE | 2019-02-23 18:11 | NUR ---
Problems reprioritized. Patient report given, questions answered & plan of care reviewed with Horacio EDOUARD.
--- NOTE | 2019-02-23 18:11 | NUR ---
Problems reprioritized. Patient report given, questions answered & plan of care reviewed with JAVAN Leonard.
--- NOTE | 2019-02-23 18:13 | NUR ---
Patient in room PCU 3026. I have received report from Elen/Aaron RNs and had the opportunity to ask questions and assume patient care.
[2019-02-23 18:36] LABS: PLATELET ESTIMATE DECREASED
[2019-02-23 18:37] LABS: ANISOCYTOSIS 3+; HYPOCHROMASIA 1+; SCHISTOCYTES 1+
[2019-02-23] MEDS: heparin 25,000 UNIT/250ml bag 250 ML IV SCH (20:01)
[2019-02-23] MEDS: magnesium oxide 400mg tablet PO SCH (20:04)
[2019-02-23] MEDS: atorvastatin 20mg tablet PO SCH (20:04)
[2019-02-23] MEDS: insulin glargine (Lantus) pen - multi-dose SQ SCH (21:00)
[2019-02-23 22:00] VITALS: BP 134/66
[2019-02-24 02:00] VITALS: BP 133/72
[2019-02-24 03:33] LABS: BASOPHILS # (AUTO) 0.1 X10'3 (0-0.2); BASOPHILS % (AUTO) 1.5 % (0-1); EOSINOPHILS # (AUTO) 0.5 X10'3 (0-0.9); EOSINOPHILS % (AUTO) 8.1 % (0-6); HEMATOCRIT 35.5 % (35.0-45.0); HEMOGLOBIN 11.5 g/dl (12.0-16.0); LYMPHOCYTES # (AUTO) 2.3 X10'3 (1.1-4.8); LYMPHOCYTES % (AUTO) 39.6 % (21-51); MEAN CORPUSCULAR HEMOGLOBIN 29.8 PG (27.0-31.0); MEAN CORPUSCULAR HGB CONC 32.4 g/dL (33.0-36.5); MEAN CORPUSCULAR VOLUME 91.9 FL (78-98); MEAN PLATELET VOLUME 8.2 FL (7.4-10.4); MONOCYTES # (AUTO) 0.6 X10'3 (0-0.9); MONOCYTES % (AUTO) 9.7 % (2-12); NEUTROPHILS # (AUTO) 2.4 X10'3 (1.8-7.7); NEUTROPHILS % (AUTO) 41.1 % (42-75); PLATELET COUNT 125 X10'3 (140-440); RED BLOOD COUNT 3.87 X10'6 (4.20-5.60); WHITE BLOOD COUNT 5.8 X10'3 (4.5-11.0)
[2019-02-24 03:47] LABS: ALANINE AMINOTRANSFERASE 28 U/L (12-78); ALBUMIN 3.5 G/DL (3.4-5.0); ALBUMIN/GLOBULIN RATIO 0.9 (1.1-1.5); ALKALINE PHOSPHATASE 56 IU/L (46-116); ANION GAP 8 (8-16); ASPARTATE AMINO TRANSFERASE 22 U/L (10-37); BILIRUBIN,TOTAL 0.6 MG/DL (0.1-1.0); BLOOD UREA NITROGEN 30 MG/DL (7-18); BUN/CREATININE RATIO 23.3 (6.6-38.0); CALCIUM 9.3 MG/DL (8.5-10.1); CHLORIDE 102 MMOL/L (99-107); CREATININE 1.29 MG/DL (0.40-0.90); GLUCOSE 113 MG/DL (70-104); MAGNESIUM 1.8 MG/DL (1.5-2.4); PHOSPHORUS 4.1 MG/DL (2.3-4.5); POTASSIUM 4.3 MMOL/L (3.5-5.1); SODIUM 139 MMOL/L (135-145); TOTAL CARBON DIOXIDE 29.1 MMOL/L (24-32); TOTAL PROTEIN 7.4 G/DL (6.4-8.2); eGFR 40 ML/MIN
--- NOTE | 2019-02-24 03:54 | NUR ---
PTT was 51= no rate change. still at 900u/hr
[2019-02-24 04:13] LABS: ANISOCYTOSIS 3+; ELLIPTOCYTES FEW; HYPOCHROMASIA 1+; PLATELET ESTIMATE DECREASED
--- NOTE | 2019-02-24 04:44 | NUR ---
Called Dr. Melendez about the patient's blood pressure of 177/84 with a heart rate of 70. Dr. Melendez didn't want to order anything.
[2019-02-24 06:00] VITALS: BP 143/67
--- NOTE | 2019-02-24 06:16 | NUR ---
Patient in room PCU 3026. I have received report from Horacio EDOUARD and had the opportunity to ask questions and assume patient care. Pt is awake in bed, all needs met at this time, will continue to monitor.
--- NOTE | 2019-02-24 06:31 | NUR ---
Problems reprioritized. Patient report given, questions answered & plan of care reviewed with Jovani EDOUARD.
[2019-02-24] MEDS: pantoprazole 40mg Tablet.DR PO SCH (07:05)
[2019-02-24] MEDS: levoTHYROXINE 100mcg tablet PO SCH (07:05)
[2019-02-24] MEDS: metoprolol succinate 25mg (24-HOUR) SR. Tablet PO SCH (07:06)
[2019-02-24] MEDS: furosemide 20MG tablet PO SCH (07:06)
[2019-02-24] MEDS: losartan 25mg tablet PO SCH (07:06)
[2019-02-24] MEDS: potassium Cl 20 mEq SR tablet PO SCH ×2 (07:43→19:55)
--- NOTE | 2019-02-24 09:59 | NUR ---
PAGER ID: [phone] MESSAGE: [id number] Jayde Sánchez: Pt is constipated, PRN MOM ineffective, pt requesting Miralax. Thanks Aaron [phone]
[2019-02-24] MEDS: heparin 25,000 UNIT/250ml bag 250 ML IV SCH (10:24)
[2019-02-24] MEDS ORDERED: nitroGLYCERIN 0.4mg SUBLingual tab SL PRN (10:40)
[2019-02-24] MEDS ORDERED: metoprolol tartrate 1mg/ml inj IV PRN (10:40)
[2019-02-24] MEDS ORDERED: regadenoson 0.4mg/5ml syringe IV ONE (10:40)
[2019-02-24] MEDS ORDERED: aminophylline 250mg/10ml inj. IV PRN (10:40)
[2019-02-24] MEDS: furosemide 20 MG/2 ML vial IV SCH ×2 (12:51→19:56)
--- NOTE | 2019-02-24 13:06 | NUR ---
Discussed care w/ Dr. Gabriel, ordered prn Miralax for constipation, dc'ed heparin gtts, and pt eval and treat
[2019-02-24 15:00] VITALS: BP 106/61
[2019-02-24] MEDS: polyethylene glycol 3350 17gm powd pack PO PRN (17:17)
--- NOTE | 2019-02-24 17:49 | NUR ---
[place] documentation: I have reviewed and agree with all interventions, assessments performed and documented by JAVAN Walker. [place] Medication Administration: For this medication-pass time frame, all medication were reviewed, dispensed, administered and documented per hospital policy by JAVAN Walker.
--- NOTE | 2019-02-24 18:20 | NUR ---
Problems reprioritized. Patient report given, questions answered & plan of care reviewed with Christal EDOUARD.
[2019-02-24 18:30] VITALS: BP 134/74
--- NOTE | 2019-02-24 18:39 | NUR ---
Received report from Emily EDOUARD and Amee EDOUARD pt is awake and alert on RA, in no apparent distress, call light and items of freq use within reach.
[2019-02-24] MEDS: magnesium oxide 400mg tablet PO SCH (19:54)
[2019-02-24] MEDS: apixaban 5mg tablet PO SCH (19:54)
[2019-02-24] MEDS: atorvastatin 20mg tablet PO SCH (19:54)
[2019-02-24] MEDS: insulin glargine (Lantus) pen - multi-dose SQ SCH (21:00)
[2019-02-24] MEDS: spironolactone 25 MG tablet PO SCH (22:21)
[2019-02-24 22:30] VITALS: BP 118/68
[2019-02-25 02:30] VITALS: BP 133/66
--- NOTE | 2019-02-25 06:07 | NUR ---
Gave report to Emily EDOUARD pt is resting on RA, breaths even and unlabored, call light and items of freq use within reach.
--- NOTE | 2019-02-25 06:08 | NUR ---
Patient in room PCU 3026. I have received report from JAVAN Junior and had the opportunity to ask questions and assume patient care. Will continue to monitor patient.
[2019-02-25 06:33] LABS: ALANINE AMINOTRANSFERASE 29 U/L (12-78); ALBUMIN 3.5 G/DL (3.4-5.0); ALBUMIN/GLOBULIN RATIO 0.9 (1.1-1.5); ALKALINE PHOSPHATASE 49 IU/L (46-116); ANION GAP 7 (8-16); ASPARTATE AMINO TRANSFERASE 22 U/L (10-37); BILIRUBIN,TOTAL 0.8 MG/DL (0.1-1.0); BLOOD UREA NITROGEN 25 MG/DL (7-18); BUN/CREATININE RATIO 20.5 (6.6-38.0); CALCIUM 9.5 MG/DL (8.5-10.1); CHLORIDE 103 MMOL/L (99-107); CREATININE 1.22 MG/DL (0.40-0.90); GLUCOSE 110 MG/DL (70-104); MAGNESIUM 2.1 MG/DL (1.5-2.4); PHOSPHORUS 4.4 MG/DL (2.3-4.5); POTASSIUM 4.3 MMOL/L (3.5-5.1); SODIUM 140 MMOL/L (135-145); TOTAL CARBON DIOXIDE 30.5 MMOL/L (24-32); TOTAL PROTEIN 7.4 G/DL (6.4-8.2); eGFR 42 ML/MIN
[2019-02-25 06:37] LABS: BASOPHILS # (AUTO) 0.1 X10'3 (0-0.2); BASOPHILS % (AUTO) 2.1 % (0-1); EOSINOPHILS # (AUTO) 0.4 X10'3 (0-0.9); HEMATOCRIT 35.7 % (35.0-45.0)
[2019-02-25 06:39] LABS: EOSINOPHILS % (AUTO) 8.6 % (0-6); HEMOGLOBIN 11.6 g/dl (12.0-16.0); LYMPHOCYTES # (AUTO) 1.4 X10'3 (1.1-4.8); LYMPHOCYTES % (AUTO) 29.6 % (21-51); MEAN CORPUSCULAR HGB CONC 32.6 g/dL (33.0-36.5); MEAN CORPUSCULAR VOLUME 91.9 FL (78-98); MEAN PLATELET VOLUME 8.6 FL (7.4-10.4); MONOCYTES # (AUTO) 0.6 X10'3 (0-0.9); MONOCYTES % (AUTO) 11.8 % (2-12); NEUTROPHILS # (AUTO) 2.3 X10'3 (1.8-7.7); NEUTROPHILS % (AUTO) 47.9 % (42-75); PLATELET COUNT 134 X10'3 (140-440); RED BLOOD COUNT 3.88 X10'6 (4.20-5.60); RED CELL DISTRIBUTION WIDTH 23.9 % (11.5-14.5); WHITE BLOOD COUNT 4.8 X10'3 (4.5-11.0)
[2019-02-25 07:00] VITALS: BP 118/66
[2019-02-25] MEDS: losartan 25mg tablet PO SCH ×2 (07:32→08:00)
[2019-02-25] MEDS: furosemide 20 MG/2 ML vial IV SCH (07:32)
[2019-02-25] MEDS: apixaban 5mg tablet PO SCH ×2 (07:32→08:00)
[2019-02-25] MEDS: pantoprazole 40mg Tablet.DR PO SCH (07:32)
[2019-02-25] MEDS: levoTHYROXINE 100mcg tablet PO SCH (07:32)
[2019-02-25] MEDS: metoprolol succinate 25mg (24-HOUR) SR. Tablet PO SCH (07:32)
[2019-02-25] MEDS: potassium Cl 20 mEq SR tablet PO SCH (07:32)
[2019-02-25] MEDS: polyethylene glycol 3350 17gm powd pack PO PRN (07:33)
[2019-02-25] MEDS: spironolactone 25 MG tablet PO SCH (08:30)
[2019-02-25 09:38] LABS: ANISOCYTOSIS 3+; ELLIPTOCYTES FEW; PLATELET ESTIMATE DECREASED
[2019-02-25 11:00] VITALS: BP 103/61
== END 2019-02-25 15:20 | disposition home health service (06) | DRG 280 ==
LOC: ER 04:00 → PCU 3S 07:01 → CMPBEDREQ 07:11
PROVIDERS: ADMIT Internal Medicine; ATTEND Family Medicine
DX: I21.A1 Myocardial infarction type 2 (principal); I50.23 Acute on chronic systolic (congestive) heart failure; I25.810 Atherosclerosis of coronary artery bypass graft(s) without angina pectoris; I11.0 Hypertensive heart disease with heart failure; I48.2 Chronic atrial fibrillation; E03.9 Hypothyroidism, unspecified; E11.9 Type 2 diabetes mellitus without complications; E78.00 Pure hypercholesterolemia, unspecified; E78.5 Hyperlipidemia, unspecified; F41.9 Anxiety disorder, unspecified; I27.20 Pulmonary hypertension, unspecified; I35.0 Nonrheumatic aortic (valve) stenosis; Z60.2 Problems related to living alone; I44.7 Left bundle-branch block, unspecified; J44.9 Chronic obstructive pulmonary disease, unspecified; N28.9 Disorder of kidney and ureter, unspecified; K21.9 Gastro-esophageal reflux disease without esophagitis; Z82.49 Family history of ischemic heart disease and other diseases of the circulatory system; I25.2 Old myocardial infarction; Z86.73 Personal history of transient ischemic attack (TIA), and cerebral infarction without residual deficits; Z90.710 Acquired absence of both cervix and uterus; Z95.3 Presence of xenogenic heart valve; Z95.5 Presence of coronary angioplasty implant and graft; Z88.8 Allergy status to other drugs, medicaments and biological substances; Z88.1 Allergy status to other antibiotic agents; Z91.011 Allergy to milk products; Z90.49 Acquired absence of other specified parts of digestive tract; Z79.899 Other long term (current) drug therapy; Z98.49 Cataract extraction status, unspecified eye; Z79.01 Long term (current) use of anticoagulants; Z99.81 Dependence on supplemental oxygen
CPT/HCPCS: 36415; 71045; 80053; 81001; 82948; 83036; 83735; 83880; 84100; 84484; 85025; 85610; 85730; 87081; 93005; 93306; 94760; 96374; 97110; 97116; 97162; 99285; G0378; J1644; J1815; J1940; J2405

== ENCOUNTER 2019-08-28 03:48 | Emergency (ER) | payer MEDICARE, OTHER, MEDICAID ==
[~2019-08-28] VITALS: Ht 149.9 cm; Wt 80.5 kg
[~2019-08-28 03:48] MED LIST changes: +APIX5TAB3 PO; +LEVO100T PO; -LEVO125T8 PO; +LOSA25TA96 PO; -RIVA20TA PO
[2019-08-28] MEDS ORDERED: cyclobenzaprine 10mg tablet PO ONE (04:05)
[2019-08-28] MEDS ORDERED: HYDROcodone/acetaminophen 5mg/325mg tablet PO ONE (04:05)
[2019-08-28] MEDS ORDERED: ondansetron 4mg rapidly disintigrating tab PO ONE (05:35)
[2019-08-28] MEDS ORDERED: HYDR-4383 PO (05:50)
[2019-08-28] MEDS ORDERED: SENN-162 PO (05:50)
[2019-08-28 06:38] VITALS: BP 125/72
--- NOTE | 2019-08-28 06:44 | NUR ---
ASSIST PT TO BEDSIDE COMMODE. PT IS ABLE TO TRANSFER BUT IS PAINFUL. PT DENIES PAIN WHILE SITTING OR LYING DOWN.
--- NOTE | 2019-08-28 06:48 | NUR ---
PT IS ABLE TO AMBULATE IN HER ROOM AFTER USING COMMODE. NOTIFY DR FLORES. WILL CALL PT'S DAUGHTER FOR A RIDE HOME.
--- NOTE | 2019-08-28 06:52 | NUR ---
LEFT MESSAGE WITH PT'S DAUGHTER.
--- NOTE | 2019-08-28 08:00 | NUR ---
NO SIDE EFFECT S/S FROM TAKING THE NORCO. PT IS ABLE TO AMBULATE NOW. WAITING FOR HER DAUGHTER TO CALL BACK.
--- NOTE | 2019-08-28 08:26 | NUR ---
PT'S DAUGHTER IS CONTACTED AND WILL COME AND GET HER. REGISTRATION HAD THE PT'S HOME PHONE FOR THE DAUGHTER AND THEY ARE NOW CORRECTING THAT.
--- NOTE | 2019-08-28 08:48 | NUR ---
PT STATES THAT THE DOCTOR WAS IN TO EXPLAIN HER TEST RESULTS. PT IS SATISFIED AND READY TO GO HOME. WAITING FOR HER DAUGHTER TO ARRIVE.
--- NOTE | 2019-08-28 09:19 | NUR ---
PT'S DAUGHTER ARRIVES TO TAKE PT HOME. DC INSTRUCTIONS GIVEN. PT TAKEN OUT TO CAR BY TECH WITH W/C.
== END 2019-08-28 09:22 | disposition home or self-care (01) ==
LOC: ER 03:48
DX: M54.5 Low back pain (principal); I25.10 Atherosclerotic heart disease of native coronary artery without angina pectoris; I11.0 Hypertensive heart disease with heart failure; I50.9 Heart failure, unspecified; E78.00 Pure hypercholesterolemia, unspecified; J44.9 Chronic obstructive pulmonary disease, unspecified; K21.9 Gastro-esophageal reflux disease without esophagitis; E11.9 Type 2 diabetes mellitus without complications; Z90.49 Acquired absence of other specified parts of digestive tract; Z95.1 Presence of aortocoronary bypass graft; Z90.710 Acquired absence of both cervix and uterus; Z95.0 Presence of cardiac pacemaker; Z86.73 Personal history of transient ischemic attack (TIA), and cerebral infarction without residual deficits; Z88.1 Allergy status to other antibiotic agents; Z88.8 Allergy status to other drugs, medicaments and biological substances; Z79.899 Other long term (current) drug therapy
CPT/HCPCS: 72100; 99284

== ENCOUNTER 2023-03-05 20:15 | Emergency (ER) | payer MEDICARE, OTHER, MEDICAID ==
[~2023-03-05] VITALS: Ht 152.4 cm; Wt 88.6 kg
[~2023-03-05 20:15] MED LIST changes: +ALBU2.5V12 NEB; +DAPA10TA PO; +FERR325T7 PO; -FURO20TA4 PO; -LOSA25TA96 PO; -METF500T PO; -NITR0.4T51 SL; -OMEP20TA5 PO; -POTA20TA10 PO; +SACU1TAB7 PO; +SPIR25TA5 PO; -oxygen INH
[2023-03-05 22:27] VITALS: TEMP 98.9
[2023-03-06] MEDS ORDERED: acetaminophen 325mg tablet PO ONE (07:00)
[2023-03-06] MEDS ORDERED: NIRM1TAB PO (09:11)
[2023-03-06 09:41] VITALS: BP 103/43; PULSE 67; RESP 16; O2SAT 92
== END 2023-03-06 10:28 | disposition home or self-care (01) ==
LOC: ER 20:15
DX: U07.1 COVID-19 (principal); I11.0 Hypertensive heart disease with heart failure; I50.9 Heart failure, unspecified; E78.00 Pure hypercholesterolemia, unspecified; J44.9 Chronic obstructive pulmonary disease, unspecified; K21.9 Gastro-esophageal reflux disease without esophagitis; E11.9 Type 2 diabetes mellitus without complications; E03.9 Hypothyroidism, unspecified; Z88.1 Allergy status to other antibiotic agents; Z88.2 Allergy status to sulfonamides; Z79.899 Other long term (current) drug therapy; Z90.710 Acquired absence of both cervix and uterus; Z90.49 Acquired absence of other specified parts of digestive tract
CPT/HCPCS: 36415; 70450; 71045; 87502; 87503; 87811; 99285

== ENCOUNTER 2023-04-10 18:37 | Emergency (ER) | payer MEDICARE, OTHER, MEDICAID ==
[~2023-04-10] VITALS: Ht 149.9 cm; Wt 70.5 kg
[~2023-04-10 18:37] MED LIST changes: +NIRM1TAB PO
[2023-04-10 18:52] VITALS: BP 142/62; PULSE 70; RESP 17; TEMP 97.1; O2SAT 98
--- NOTE | 2023-04-10 20:02 | NUR ---
I have reviewed and agree with all interventions, assessments performed and documented by jayson taylor
[2023-04-10] MEDS ORDERED: ketorolac trometh inj. 60 MG/2 ML VIAL IM ONE (20:45)
[2023-04-10] MEDS ORDERED: PRED20TA PO (20:46)
== END 2023-04-10 21:18 | disposition home or self-care (01) ==
LOC: ER 18:38
DX: M54.16 Radiculopathy, lumbar region (principal); I11.0 Hypertensive heart disease with heart failure; I50.9 Heart failure, unspecified; E78.00 Pure hypercholesterolemia, unspecified; J44.9 Chronic obstructive pulmonary disease, unspecified; K21.9 Gastro-esophageal reflux disease without esophagitis; E11.9 Type 2 diabetes mellitus without complications; E03.9 Hypothyroidism, unspecified; Z88.1 Allergy status to other antibiotic agents; Z88.8 Allergy status to other drugs, medicaments and biological substances; Z79.899 Other long term (current) drug therapy; Z91.041 Radiographic dye allergy status; Z90.49 Acquired absence of other specified parts of digestive tract; Z90.710 Acquired absence of both cervix and uterus
CPT/HCPCS: 96372; 99283; J1885

== ENCOUNTER 2023-04-15 12:33 | Inpatient (IN) | payer MEDICARE, OTHER, MEDICAID ==
[~2023-04-15] VITALS: Ht 152.4 cm; Wt 88.2 kg
[~2023-04-15 12:33] MED LIST changes: +PRED20TA PO
[2023-04-15 13:16] LABS: BASOPHILS % (AUTO) 0.6 % (0-1); EOSINOPHILS % (AUTO) 0.1 % (0-6); HEMATOCRIT 30.6 % (35.0-45.0); HEMOGLOBIN 10.1 g/dl (12.0-16.0); LYMPHOCYTES # (AUTO) 0.9 X10'3 (1.1-4.8); LYMPHOCYTES % (AUTO) 12.1 % (21-51); MEAN CORPUSCULAR HEMOGLOBIN 34.6 PG (27.0-31.0); MEAN CORPUSCULAR VOLUME 104.9 FL (78-98); MEAN PLATELET VOLUME 9.3 FL (7.4-10.4); MONOCYTES # (AUTO) 0.3 X10'3 (0-0.9); MONOCYTES % (AUTO) 3.7 % (2-12); NEUTROPHILS # (AUTO) 6.3 X10'3 (1.8-7.7); NEUTROPHILS % (AUTO) 83.5 % (42-75); PLATELET COUNT 194 X10'3 (140-440); RED BLOOD COUNT 2.92 X10'6 (4.20-5.60); RED CELL DISTRIBUTION WIDTH 18.3 % (11.5-14.5); WHITE BLOOD COUNT 7.5 X10'3 (4.5-11.0)
[2023-04-15 13:29] LABS: ALANINE AMINOTRANSFERASE 29 U/L (12-78); ALKALINE PHOSPHATASE 75 IU/L (46-116); ANION GAP 10 (8-16); ASPARTATE AMINO TRANSFERASE 20 U/L (10-37); BILIRUBIN,TOTAL 0.5 MG/DL (0.1-1.0); BLOOD UREA NITROGEN 64 MG/DL (7-18); BUN/CREATININE RATIO 34.4 (10.0-20.0); CALCIUM 10.4 MG/DL (8.5-10.1); CHLORIDE 100 MMOL/L (99-107); CREATININE 1.86 MG/DL (0.40-0.90); GLUCOSE 195 MG/DL (70-104); POTASSIUM 5.8 MMOL/L (3.5-5.1); SODIUM 130 MMOL/L (135-145); TOTAL CARBON DIOXIDE 19.9 MMOL/L (24-32); TOTAL PROTEIN 8.2 G/DL (6.4-8.2); eCRCL 16 ML/MIN; eGFR 26 ML/MIN
[2023-04-15 13:37] LABS: PRO BRAIN NATRIURETIC PEPTIDE 6213 PG/ML (0-450)
[2023-04-15] MEDS ORDERED: furosemide 10 MG/1 ML 10ml inj IV ONE (20:45)
[2023-04-15] MEDS ORDERED: temazepam 15mg capsule PO PRN (21:00)
--- NOTE | 2023-04-15 22:44 | NUR ---
PURWICK PLACED AND TO SUCTION R/T PEND LASIX INJ AND BACK PAIN HINDERING BSC TX
[2023-04-15] MEDS ORDERED: diphenhydrAMINE 50 mg/ml inj IV PRN (23:20)
[2023-04-15] MEDS ORDERED: acetaminophen 325mg tablet PO PRN (23:20)
[2023-04-15] MEDS ORDERED: diphenhydrAMINE 25mg capsule PO PRN (23:20)
[2023-04-15] MEDS ORDERED: ondansetron 4mg rapidly disintigrating tab PO PRN (23:20)
[2023-04-15] MEDS ORDERED: ipratropium/albuterol 3ml nebule NEB PRN (23:20)
[2023-04-15] MEDS ORDERED: ondansetron/PF 4mg/2ml inj IV PRN (23:20)
[2023-04-15] MEDS ORDERED: magnesium hydroxide 30ml (MOM) UD suspension PO PRN (23:20)
[2023-04-15] MEDS ORDERED: bisacodyl 10mg suppository rectal RC PRN (23:20)
[2023-04-15] MEDS ORDERED: morphine 2 MG/ML inj. syringe IV PRN (23:20)
[2023-04-15] MEDS ORDERED: DEXTROSE 15 GM of carb/4 tabs (each vial/BOTTLE has 4 tablets) PO PRN ×2 (23:25)
[2023-04-15] MEDS ORDERED: glucagon, human recombinant 1mg kit SUBCUT PRN (23:25)
[2023-04-15] MEDS ORDERED: insulin Lispro (HumaLOG) vial - multi-dose SQ SCH (23:25)
[2023-04-15] MEDS ORDERED: dextrose 50%-water 50ml dispensing syringe IV PRN ×2 (23:25)
[2023-04-15] MEDS ORDERED: sodium bicarbonate (8.4%) inj. 50 MEQ in dextrose 5%-water 1,000 ML IV SCH (23:25)
[2023-04-15] MEDS ORDERED: MESSAGE TO PHARMACY PO ONE (23:25)
[2023-04-15] MEDS ORDERED: CALCIUM GLUC 1gm/50ml NACL,iso 50 ML IV ONE (23:35)
[2023-04-15 23:46] VITALS: PULSE 82; RESP 16; O2SAT 99
[2023-04-16] VITALS (7 sets, daily range): BP systolic 113–151; BP diastolic 48–68; PULSE 70–77; RESP 12–18; TEMP 97.6–98.4; O2SAT 96–100
[2023-04-16] MEDS: HYDROcodone/acetaminophen 5mg/325mg tablet PO PRN ×2 (00:32→06:24)
[2023-04-16 00:50] LABS: BILIRUBIN,URINE NEGATIVE (Neg); CLARITY,URINE CLEAR (Clear); GLUCOSE, URINE 250 mg/dl (Neg); KETONES,URINE NEGATIVE (Neg); LEUKOCYTE ESTERASE ,URINE NEGATIVE (Neg); NITRITES, URINE NEGATIVE (Neg); OCCULT BLOOD,URINE NEGATIVE (Neg); PH,URINE 5.5 (4.8-8.0); PROTEIN,URINE 30 mg/dl (Neg); UROBILINOGEN,URINE 0.2 E.U/dL (0.2-1.0)
[2023-04-16 00:51] LABS: COLOR,URINE STRAW (Yellow); UA COLLECTION TYPE NON-SPECIFIED
[2023-04-16 01:09] LABS: MUCUS STRANDS NONE SEEN /LPF (Neg); SQUAMOUS EPITHELIAL CELL,UR FEW /LPF (FEW)
[2023-04-16 01:11] LABS: BACTERIA,URINE FEW /HPF (Neg); RBC,URINE 0-2 /HPF (0-2); WBC,URINE 0-4 /HPF (0-4)
[2023-04-16 01:28] LABS: HEMOGLOBIN A1C 6.6 % (4.5-6.2)
[2023-04-16 01:42] LABS: MAGNESIUM 1.9 MG/DL (1.5-2.4); PHOSPHORUS 4.2 MG/DL (2.3-4.5); THYROID STIMULATING HORMONE 1.72 ulU/ml (0.34-4.50)
[2023-04-16 01:43] LABS: APTT 22 SECONDS (22-32); D-DIMER 1.17 MG/L FEU (0-0.50); PROTHROMBIN TIME 10.9 SECONDS (9.0-12.0)
[2023-04-16 06:05] LABS: BASOPHILS # (AUTO) 0.1 X10'3 (0-0.2); BASOPHILS % (AUTO) 0.6 % (0-1); EOSINOPHILS # (AUTO) 0.1 X10'3 (0-0.9); EOSINOPHILS % (AUTO) 0.7 % (0-6); HEMATOCRIT 29.8 % (35.0-45.0); HEMOGLOBIN 9.9 g/dl (12.0-16.0); LYMPHOCYTES % (AUTO) 22.3 % (21-51); MEAN CORPUSCULAR HEMOGLOBIN 34.3 PG (27.0-31.0); MEAN CORPUSCULAR HGB CONC 33.1 g/dL (33.0-36.5); MEAN CORPUSCULAR VOLUME 103.6 FL (78-98); MEAN PLATELET VOLUME 9.2 FL (7.4-10.4); MONOCYTES % (AUTO) 11.5 % (2-12); NEUTROPHILS # (AUTO) 5.8 X10'3 (1.8-7.7); NEUTROPHILS % (AUTO) 64.9 % (42-75); PLATELET COUNT 185 X10'3 (140-440); RED BLOOD COUNT 2.88 X10'6 (4.20-5.60); RED CELL DISTRIBUTION WIDTH 18.4 % (11.5-14.5)
[2023-04-16 06:33] LABS: ALANINE AMINOTRANSFERASE 25 U/L (12-78); ALBUMIN 3.5 G/DL (3.4-5.0); ALBUMIN/GLOBULIN RATIO 0.9 (1.1-1.5); ALKALINE PHOSPHATASE 50 IU/L (46-116); ANION GAP 11 (8-16); ASPARTATE AMINO TRANSFERASE 18 U/L (10-37); BILIRUBIN,TOTAL 0.4 MG/DL (0.1-1.0); BLOOD UREA NITROGEN 68 MG/DL (7-18); BUN/CREATININE RATIO 39.3 (10.0-20.0); CALCIUM 10.5 MG/DL (8.5-10.1); CHLORIDE 100 MMOL/L (99-107); CHOL/HDL RATIO 1.8 (0.00-4.99); CHOLESTEROL 118 MG/DL (0-200); CREATININE 1.73 MG/DL (0.40-0.90); GLUCOSE 189 MG/DL (70-104); HDL CHOLESTEROL 64 MG/DL (35-60); LDL CHOLESTEROL 43 MG/DL (50-100); SODIUM 134 MMOL/L (135-145); TOTAL CARBON DIOXIDE 23.2 MMOL/L (24-32); TOTAL PROTEIN 7.5 G/DL (6.4-8.2); TRIGLYCERIDES 94 MG/DL (20-135); eCRCL 17 ML/MIN; eGFR 28 ML/MIN
[2023-04-16] MEDS: docusate sod 100mg capsule PO SCH ×2 (08:00→10:46)
--- NOTE | 2023-04-16 08:35 | NUR ---
ATTEMPTED TO CALL REPORT X3 TO JAVAN MCFARLAND - WAS UNSUCCESSFUL. 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 WILL TRANSFER SHAD MARTA UPSTAIRS IN HOSPITAL BED.
--- NOTE | 2023-04-16 10:00 | NUR ---
Admitted to PCU unit AM labs show elevated glucose level <200. Addendum: 04/16/23 at 1011 by Lu Tom RN Amended: Links added.
[2023-04-16] MEDS: furosemide 10 MG/1 ML 10ml inj IV SCH ×2 (10:46→19:52)
[2023-04-16] MEDS: pantoprazole 40mg Tablet.DR PO SCH (10:47)
[2023-04-16] MEDS: normal saline 1000ml 1,000 ML IV SCH (10:47)
[2023-04-16] MEDS: HYDROcodone/acetaminophen 10/325mg tab PO PRN ×3 (11:20→20:00)
[2023-04-16] MEDS ORDERED: non-formulary drug (Acetaminophen (Tylenol Extra Strength) 1 TAB) PO PRN (14:10)
[2023-04-16] MEDS ORDERED: non-formulary drug (Levalbuterol Tartrate (Xopenex Hfa) 2 PUFFS) INH PRN (14:10)
[2023-04-16] MEDS ORDERED: triamcinolone acet 0.1% cream 15gm TP PRN (14:10)
[2023-04-16] MEDS ORDERED: albuterol 2.5 MG/3 ML nebule NEB PRN (14:10)
[2023-04-16] MEDS ORDERED: SACU1TAB PO (14:35)
[2023-04-16] MEDS ORDERED: LEVO112T5 PO (14:43)
--- NOTE | 2023-04-16 19:11 | NUR ---
Patient in room PCU 3014. I have received report from BRUNA EDOUARD and had the opportunity to ask questions and assume patient care.
[2023-04-16] MEDS: apixaban 5mg tablet PO SCH (19:54)
[2023-04-16] MEDS: sacubitril/valsartan 24mg-26mg tablet PO SCH (19:59)
[2023-04-16] MEDS ORDERED: NIRMATRELVIR PO SCH (20:00)
[2023-04-16] MEDS ORDERED: RITONAVIR PO SCH (20:00)
[2023-04-16] MEDS: insulin glargine (Lantus) pen - multi-dose SQ SCH (21:00)
[2023-04-17] VITALS (10 sets, daily range): BP systolic 94–160; BP diastolic 43–83; PULSE 69–74; RESP 14–28; TEMP 97.2–97.7; O2SAT 95–100
[2023-04-17] MEDS: normal saline 1000ml 1,000 ML IV SCH (05:51)
[2023-04-17] MEDS: acetaminophen 325mg tablet PO PRN ×2 (05:53→20:23)
--- NOTE | 2023-04-17 06:28 | NUR ---
Patient in room PCU 3014. I have received report from JESUS EDOUARD and had the opportunity to ask questions and assume patient care.
--- NOTE | 2023-04-17 06:28 | NUR ---
Problems reprioritized. Patient report given, questions answered & plan of care reviewed with SHELLI EDOUARD.
[2023-04-17] MEDS: DAPAGLIFLOZIN 10MG TABLET PO SCH (07:19)
[2023-04-17] MEDS: furosemide 10 MG/1 ML 10ml inj IV SCH ×2 (07:19→20:00)
[2023-04-17] MEDS: levoTHYROXINE 100mcg tablet PO SCH (07:20)
[2023-04-17] MEDS: metoprolol succinate 25mg (24-HOUR) SR. Tablet PO SCH (07:20)
[2023-04-17] MEDS: ferrous sulfate 325mg tablet PO SCH (07:22)
[2023-04-17] MEDS: docusate sod 100mg capsule PO SCH ×2 (07:22→20:22)
[2023-04-17] MEDS: atorvastatin 20mg tablet PO SCH (07:22)
[2023-04-17] MEDS: pantoprazole 40mg Tablet.DR PO SCH (07:23)
[2023-04-17] MEDS: apixaban 5mg tablet PO SCH ×2 (07:23→20:22)
[2023-04-17] MEDS: magnesium oxide 400mg tablet PO SCH (07:23)
[2023-04-17] MEDS: spironolactone 25 MG tablet PO SCH (07:24)
[2023-04-17] MEDS ORDERED: predniSONE 20 mg tablet PO SCH (08:00)
[2023-04-17] MEDS: sacubitril/valsartan 24mg-26mg tablet PO SCH ×2 (08:08→20:23)
[2023-04-17 09:19] LABS: CREATININE 1.68 MG/DL (0.40-0.90); POTASSIUM 4.8 MMOL/L (3.5-5.1); eCRCL 17 ML/MIN; eGFR 29 ML/MIN
--- NOTE | 2023-04-17 12:23 | NUR ---
PAGER ID: [phone] MESSAGE: SHELLI RN, [facility], [phone]. RE: [phone]. FAMILY AND PT. DONT WANT TO DISCHARGE. THEY FILED AN APPEAL WITH MEDICARE. SHARONDA NOTIFIED. I
--- NOTE | 2023-04-17 18:28 | NUR ---
Problems reprioritized. Patient report given TO YARED RN, questions answered & plan of care reviewed with .
[2023-04-17] MEDS: insulin glargine (Lantus) pen - multi-dose SQ SCH (21:00)
--- NOTE | 2023-04-17 21:21 | NUR ---
Pt's BS 259, pt not on carb control diet, heart healthy only. Pt states she takes metformin at home and does not want to take the insulin. LN tried to educate pt re: humalog and lantus administration. Pt stated she wants the diet changed and she will be d/c'ing to home tomorrow so she wants to see what her blood sugar is in the am.
[2023-04-18 02:14] VITALS: BP 110/57; PULSE 70; RESP 17; TEMP 97.2; O2SAT 96
[2023-04-18] MEDS: HYDROcodone/acetaminophen 5mg/325mg tablet PO PRN (02:25)
[2023-04-18] MEDS: normal saline 1000ml 1,000 ML IV SCH (02:35)
[2023-04-18 06:00] VITALS: BP 109/47; PULSE 70; RESP 16; TEMP 97.2; O2SAT 98
--- NOTE | 2023-04-18 06:43 | NUR ---
Patient in room PCU 3014. I have received report from YARED RN and had the opportunity to ask questions and assume patient care.
[2023-04-18] MEDS: spironolactone 25 MG tablet PO SCH (08:16)
[2023-04-18] MEDS: magnesium oxide 400mg tablet PO SCH (08:16)
[2023-04-18] MEDS: apixaban 5mg tablet PO SCH (08:17)
[2023-04-18] MEDS: metoprolol succinate 25mg (24-HOUR) SR. Tablet PO SCH (08:17)
[2023-04-18] MEDS: pantoprazole 40mg Tablet.DR PO SCH (08:17)
[2023-04-18] MEDS: ferrous sulfate 325mg tablet PO SCH (08:18)
[2023-04-18] MEDS: DAPAGLIFLOZIN 10MG TABLET PO SCH (08:18)
[2023-04-18] MEDS: docusate sod 100mg capsule PO SCH (08:18)
[2023-04-18] MEDS: atorvastatin 20mg tablet PO SCH (08:18)
[2023-04-18] MEDS: sacubitril/valsartan 24mg-26mg tablet PO SCH (08:18)
[2023-04-18] MEDS: levoTHYROXINE 100mcg tablet PO SCH (08:21)
[2023-04-18] MEDS ORDERED: ketorolac tromethamine 15mg/ml inj. IV PRN (08:55)
--- NOTE | 2023-04-18 09:01 | NUR ---
PT. LEVEL 2. REFUSED INSULIN 2UNITS HUMALOG.
[2023-04-18] MEDS: acetaminophen 325mg tablet PO PRN (09:05)
--- NOTE | 2023-04-18 09:17 | NUR ---
FURESOMIDE IN WILL BE LATE. MARCELINA ER NURSE NEEDS TO PUT IN IV.
[2023-04-18] MEDS: furosemide 10 MG/1 ML 10ml inj IV SCH (09:58)
[2023-04-18 10:30] VITALS: PULSE 70; RESP 16; O2SAT 98
[2023-04-18 10:55] VITALS: RESP 16; O2SAT 98
[2023-04-18 11:55] VITALS: BP 123/54; PULSE 70; RESP 18; TEMP 97.1; O2SAT 97
--- NOTE | 2023-04-18 13:40 | NUR ---
pt. refused insulin for lunch coverage.
--- NOTE | 2023-04-18 14:25 | NUR ---
PT. IS GOING TO DISCHARGE. Addendum: 04/18/23 at 1426 by Esteban Oliveira RN Amended: Links added.
--- NOTE | 2023-04-18 15:28 | NUR ---
PT. ALERT, ORIENTATED, AND STABLE UPON DISCHARGE. PT. 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 PT. IV CANULA WHOLE AND INTACT UPON REMOVAL, PT SAFELY ESCORTED INTO WHEELCHAIR INTO PRIVATE VEHICLE WITH DAUGHTER BACK HOME. HOME HEALTH PT WAS IN PROGRESS BY COOK HELPER PRESERVES. PT. LEFT WITH ALL BELONGINGS.
[2023-04-26] MEDS ORDERED: FERR325T7 PO (16:24)
[2023-04-27] MEDS ORDERED: ATOR20TA PO (12:08)
== END 2023-04-18 15:17 | disposition home health service (06) | DRG 291 ==
LOC: ER 12:33 → ED HOLD 23:22 → EDBEDREQ 04-16 03:15 → PCU 3S 04-16 09:45 → UNDODISIN 04-16 13:24
PROVIDERS: ADMIT Family Medicine; ATTEND Family Medicine
DX: I13.0 Hypertensive heart and chronic kidney disease with heart failure and stage 1 through stage 4 chronic kidney disease, or unspecified chronic kidney disease (principal); I50.23 Acute on chronic systolic (congestive) heart failure; N17.0 Acute kidney failure with tubular necrosis; E87.1 Hypo-osmolality and hyponatremia; E87.20 Acidosis, unspecified; E87.5 Hyperkalemia; J44.9 Chronic obstructive pulmonary disease, unspecified; E03.9 Hypothyroidism, unspecified; E11.22 Type 2 diabetes mellitus with diabetic chronic kidney disease; I25.10 Atherosclerotic heart disease of native coronary artery without angina pectoris; I48.91 Unspecified atrial fibrillation; I49.5 Sick sinus syndrome; I27.20 Pulmonary hypertension, unspecified; E78.00 Pure hypercholesterolemia, unspecified; F41.9 Anxiety disorder, unspecified; K21.9 Gastro-esophageal reflux disease without esophagitis; G89.29 Other chronic pain; M41.9 Scoliosis, unspecified; D53.9 Nutritional anemia, unspecified; N18.9 Chronic kidney disease, unspecified; I25.2 Old myocardial infarction; Z79.899 Other long term (current) drug therapy; Z95.0 Presence of cardiac pacemaker; Z86.73 Personal history of transient ischemic attack (TIA), and cerebral infarction without residual deficits; Z95.1 Presence of aortocoronary bypass graft; Z90.710 Acquired absence of both cervix and uterus; Z90.49 Acquired absence of other specified parts of digestive tract; Z82.49 Family history of ischemic heart disease and other diseases of the circulatory system; Z80.8 Family history of malignant neoplasm of other organs or systems; Z88.1 Allergy status to other antibiotic agents; Z88.0 Allergy status to penicillin; Z88.6 Allergy status to analgesic agent; Z88.3 Allergy status to other anti-infective agents; Z88.2 Allergy status to sulfonamides; Z91.011 Allergy to milk products; Z88.8 Allergy status to other drugs, medicaments and biological substances; Z95.5 Presence of coronary angioplasty implant and graft
CPT/HCPCS: 36415; 71045; 72128; 72131; 80053; 80061; 81001; 82565; 82948; 83036; 83735; 83880; 84100; 84132; 84443; 84484; 85025; 85379; 85610; 85730; 93306; 94760; 97161; 97530; 97535; 99285; A4615; A6258; G0378; J0610; J1885; J1940; J3490; J7030; J7040; J7070; J7512

== ENCOUNTER 2023-08-06 09:45 | Observation (INO) | payer MEDICARE, OTHER, MEDICAID ==
[~2023-08-06] VITALS: Ht 149.9 cm; Wt 81.0 kg
[~2023-08-06 09:45] MED LIST changes: -ACET-1025 PO; -ALBU2.5V12 NEB; +APIX2.5T PO; -APIX5TAB3 PO; +FERR-39 PO; -FERR325T7 PO; +FURO-150 PO; -KEN0.1O TP; -LEVA15HF4 INH; -LEVO100T PO; +LEVO112T5 PO; -MAGN400C PO; +MAGN400T52 PO; +METO-384 PO; -METO100T7 PO; -NIRM1TAB PO; +PANT40TA54 PO; -PRED20TA PO; +SACU1TAB PO; -SACU1TAB7 PO; -SPIR25TA5 PO
[2023-08-06 10:33] LABS: BASOPHILS # (AUTO) 0.1 X10'3 (0-0.2); BASOPHILS % (AUTO) 1.5 % (0-1); EOSINOPHILS # (AUTO) 0.3 X10'3 (0-0.9); EOSINOPHILS % (AUTO) 3.5 % (0-6); HEMATOCRIT 36.8 % (35.0-45.0); HEMOGLOBIN 12.1 g/dl (12.0-16.0); LYMPHOCYTES # (AUTO) 1.2 X10'3 (1.1-4.8); LYMPHOCYTES % (AUTO) 14.6 % (21-51); MEAN CORPUSCULAR HGB CONC 32.8 g/dL (33.0-36.5); MEAN CORPUSCULAR VOLUME 103.6 FL (78-98); MEAN PLATELET VOLUME 8.5 FL (7.4-10.4); MONOCYTES % (AUTO) 11.8 % (2-12); NEUTROPHILS # (AUTO) 5.6 X10'3 (1.8-7.7); NEUTROPHILS % (AUTO) 68.6 % (42-75); PLATELET COUNT 239 X10'3 (140-440); RED BLOOD COUNT 3.55 X10'6 (4.20-5.60); RED CELL DISTRIBUTION WIDTH 20.5 % (11.5-14.5); WHITE BLOOD COUNT 8.1 X10'3 (4.5-11.0)
[2023-08-06 10:52] LABS: ALBUMIN 3.7 G/DL (3.4-5.0); ANION GAP 7 (8-16); BLOOD UREA NITROGEN 40 MG/DL (7-18); BUN/CREATININE RATIO 22.6 (10.0-20.0); CALCIUM 9.6 MG/DL (8.5-10.1); CHLORIDE 95 MMOL/L (99-107); CREATININE 1.77 MG/DL (0.40-0.90); GLUCOSE 228 MG/DL (70-104); MAGNESIUM 1.9 MG/DL (1.5-2.4); POTASSIUM 3.1 MMOL/L (3.5-5.1); PRO BRAIN NATRIURETIC PEPTIDE 3115 PG/ML (0-450); SODIUM 134 MMOL/L (135-145); TOTAL CARBON DIOXIDE 31.8 MMOL/L (24-32); eCRCL 16 ML/MIN; eGFR 27 ML/MIN
[2023-08-06 11:20] LABS: ANISOCYTOSIS 3+; PLATELET ESTIMATE NORMAL
[2023-08-06 11:21] LABS: BURR CELLS FEW; ELLIPTOCYTES FEW; HYPOCHROMASIA 1+; STOMATOCYTES FEW; TEAR DROP CELLS FEW
[2023-08-06] MEDS ORDERED: insulin Lispro (HumaLOG) vial - multi-dose SQ SCH (13:10)
[2023-08-06] MEDS ORDERED: magnesium 4gm in 100ml NS 100 ML IV PRN (13:10)
[2023-08-06] MEDS ORDERED: glucagon, human recombinant 1mg kit SUBCUT PRN (13:10)
[2023-08-06] MEDS ORDERED: mag hydrox/Alum hydrox/simeth 30ml oral suspension PO PRN (13:10)
[2023-08-06] MEDS ORDERED: potassium Cl 40MEQ/1/2NS 520ml 520 ML IV PRN (13:10)
[2023-08-06] MEDS ORDERED: nitroGLYCERIN 0.4mg SUBLingual tab SL PRN (13:10)
[2023-08-06] MEDS ORDERED: dextrose 50%-water 50ml dispensing syringe IV PRN ×2 (13:10)
[2023-08-06] MEDS ORDERED: magnesium 2GM in 50ml NS 50 ML IV PRN (13:10)
[2023-08-06] MEDS ORDERED: metoprolol tartrate 1mg/ml inj IV PRN (13:10)
[2023-08-06] MEDS: MESSAGE TO PHARMACY PO ONE (13:10)
[2023-08-06] MEDS ORDERED: acetaminophen 325mg tablet PO PRN (13:10)
[2023-08-06] MEDS ORDERED: ondansetron/PF 4mg/2ml inj IV PRN (13:10)
[2023-08-06] MEDS ORDERED: DEXTROSE 15 GM of carb/4 tabs (each vial/BOTTLE has 4 tablets) PO PRN ×2 (13:10)
[2023-08-06] MEDS ORDERED: regadenoson 0.4mg/5ml syringe IV PRN (13:10)
[2023-08-06] MEDS ORDERED: aminophylline 250mg/10ml inj. IV PRN (13:10)
[2023-08-06] MEDS ORDERED: bisacodyl 10mg suppository rectal RC PRN (13:10)
[2023-08-06] MEDS: aspirin 81mg tab.chew PO ONE (13:18)
[2023-08-06 13:36] LABS: BILIRUBIN,URINE NEGATIVE (Neg); CLARITY,URINE CLEAR (Clear); COLOR,URINE STRAW (Yellow); GLUCOSE, URINE >=1000 mg/dl (Neg); KETONES,URINE NEGATIVE (Neg); LEUKOCYTE ESTERASE ,URINE NEGATIVE (Neg); NITRITES, URINE NEGATIVE (Neg); OCCULT BLOOD,URINE TRACE-INTACT (Neg); PH,URINE 6.5 (4.8-8.0); PROTEIN,URINE TRACE mg/dl (Neg); UROBILINOGEN,URINE 0.2 E.U/dL (0.2-1.0)
[2023-08-06 13:49] LABS: UA COLLECTION TYPE NON-SPECIFIED
[2023-08-06 13:51] LABS: BACTERIA,URINE NONE SEEN /HPF (Neg); RBC,URINE 0-2 /HPF (0-2); SQUAMOUS EPITHELIAL CELL,UR MODERATE /LPF (FEW); WBC,URINE 0-4 /HPF (0-4)
[2023-08-06] MEDS: K and/or MAG REPLACEMENT MC SCH (15:05)
[2023-08-06] MEDS: heparin, porcine 5000 units/ml vial SQ SCH (15:34)
[2023-08-06] MEDS: potassium Cl 20 mEq SR tablet PO PRN (15:46)
[2023-08-06 16:31] VITALS: BP 127/54; PULSE 71; RESP 21; TEMP 97.7; O2SAT 97
[2023-08-06] MEDS: CefTRIAXone 2gm/D5W 50ml BAG 50 ML IV ONE (17:53)
[2023-08-06 18:00] VITALS: BP 122/55; PULSE 70; RESP 20; TEMP 97.8; O2SAT 93
[2023-08-06] MEDS: docusate sod 100mg capsule PO SCH (19:59)
[2023-08-06] MEDS: sacubitril/valsartan 24mg-26mg tablet PO SCH (20:00)
[2023-08-06] MEDS ORDERED: K and/or MAG REPLACEMENT MC SCH (20:00)
[2023-08-06] MEDS: insulin glargine (Lantus) pen - multi-dose SQ SCH (21:00)
[2023-08-06 22:00] VITALS: BP 129/68; PULSE 71; RESP 18; TEMP 97.7; O2SAT 98
[2023-08-07] MEDS: potassium Cl 20 mEq SR tablet PO PRN (00:31)
[2023-08-07 06:39] LABS: BASOPHILS # (AUTO) 0.1 X10'3 (0-0.2); BASOPHILS % (AUTO) 1.9 % (0-1); EOSINOPHILS # (AUTO) 0.4 X10'3 (0-0.9); EOSINOPHILS % (AUTO) 5.6 % (0-6); HEMATOCRIT 35.9 % (35.0-45.0); HEMOGLOBIN 11.9 g/dl (12.0-16.0); LYMPHOCYTES # (AUTO) 1.4 X10'3 (1.1-4.8); LYMPHOCYTES % (AUTO) 19.6 % (21-51); MEAN CORPUSCULAR HEMOGLOBIN 34.4 PG (27.0-31.0); MEAN CORPUSCULAR HGB CONC 33.3 g/dL (33.0-36.5); MEAN CORPUSCULAR VOLUME 103.3 FL (78-98); MEAN PLATELET VOLUME 8.8 FL (7.4-10.4); MONOCYTES # (AUTO) 0.8 X10'3 (0-0.9); MONOCYTES % (AUTO) 11.1 % (2-12); NEUTROPHILS # (AUTO) 4.2 X10'3 (1.8-7.7); NEUTROPHILS % (AUTO) 61.8 % (42-75); PLATELET COUNT 209 X10'3 (140-440); RED BLOOD COUNT 3.48 X10'6 (4.20-5.60); RED CELL DISTRIBUTION WIDTH 20.2 % (11.5-14.5); WHITE BLOOD COUNT 6.9 X10'3 (4.5-11.0)
[2023-08-07 06:59] LABS: ALANINE AMINOTRANSFERASE 28 U/L (12-78); ALBUMIN 3.4 G/DL (3.4-5.0); ALBUMIN/GLOBULIN RATIO 0.8 (1.1-1.5); ALKALINE PHOSPHATASE 61 IU/L (46-116); ANION GAP 6 (8-16); ASPARTATE AMINO TRANSFERASE 23 U/L (10-37); BILIRUBIN,TOTAL 0.7 MG/DL (0.1-1.0); BLOOD UREA NITROGEN 44 MG/DL (7-18); BUN/CREATININE RATIO 25.7 (10.0-20.0); CALCIUM 9.8 MG/DL (8.5-10.1); CHLORIDE 104 MMOL/L (99-107); CREATININE 1.71 MG/DL (0.40-0.90); GLUCOSE 182 MG/DL (70-104); MAGNESIUM 2.1 MG/DL (1.5-2.4); POTASSIUM 4.2 MMOL/L (3.5-5.1); SODIUM 141 MMOL/L (135-145); TOTAL CARBON DIOXIDE 30.9 MMOL/L (24-32); TOTAL PROTEIN 7.8 G/DL (6.4-8.2); eCRCL 16 ML/MIN; eGFR 28 ML/MIN
[2023-08-07 07:00] VITALS: BP 126/49; PULSE 70; RESP 15; TEMP 97.1; O2SAT 95
[2023-08-07] MEDS: CefTRIAXone 2gm/D5W 50ml BAG 50 ML IV SCH (07:26)
[2023-08-07 11:31] VITALS: BP 103/46; PULSE 69; RESP 16; TEMP 98.3; O2SAT 96
== END 2023-08-07 15:41 ==
LOC: ER 09:45 → ED HOLD 13:16 → EDBEDREQ 14:31 → PCU 3S 16:14
PROVIDERS: ADMIT Family Medicine; ATTEND Family Medicine
DX: R07.89 Other chest pain (principal); I13.0 Hypertensive heart and chronic kidney disease with heart failure and stage 1 through stage 4 chronic kidney disease, or unspecified chronic kidney disease; E11.22 Type 2 diabetes mellitus with diabetic chronic kidney disease; I50.22 Chronic systolic (congestive) heart failure; N18.4 Chronic kidney disease, stage 4 (severe); E03.9 Hypothyroidism, unspecified; E78.00 Pure hypercholesterolemia, unspecified; E87.5 Hyperkalemia; E87.6 Hypokalemia; I25.10 Atherosclerotic heart disease of native coronary artery without angina pectoris; I35.9 Nonrheumatic aortic valve disorder, unspecified; I48.20 Chronic atrial fibrillation, unspecified; J44.9 Chronic obstructive pulmonary disease, unspecified; K22.10 Ulcer of esophagus without bleeding; N17.9 Acute kidney failure, unspecified; R78.81 Bacteremia; I25.2 Old myocardial infarction; Z79.84 Long term (current) use of oral hypoglycemic drugs; Z87.891 Personal history of nicotine dependence; Z87.19 Personal history of other diseases of the digestive system; Z88.0 Allergy status to penicillin; Z90.710 Acquired absence of both cervix and uterus; Z95.1 Presence of aortocoronary bypass graft; Z95.2 Presence of prosthetic heart valve; Z95.810 Presence of automatic (implantable) cardiac defibrillator; Z79.899 Other long term (current) drug therapy
CPT/HCPCS: 36415; 71045; 80048; 80053; 81001; 82948; 83735; 83880; 84484; 85008; 85025; 93005; 96365; 96366; 96372; 99285; A6258; G0378; J0696; J1644; J1815; J7030; A6212

== ENCOUNTER 2024-02-03 11:14 | Inpatient (IN) | payer MEDICARE, OTHER, MEDICAID ==
[~2024-02-03] VITALS: Ht 180.3 cm; Wt 81.2 kg
[~2024-02-03 11:14] MED LIST changes: -APIX2.5T PO; +APIX5TAB3 PO; -DAPA10TA PO; +METF-436 PO; -PANT40TA54 PO
[2024-02-03] MEDS: normal saline 500ml IV soln 500 ML IV ONE (12:15)
[2024-02-03 12:20] LABS: BASOPHILS % (AUTO) 0.3 % (0-1); EOSINOPHILS % (AUTO) 0 % (0-6); HEMATOCRIT 27.8 % (35.0-45.0); HEMOGLOBIN 8.8 g/dl (12.0-16.0); LYMPHOCYTES # (AUTO) 0.6 X10'3 (1.1-4.8); LYMPHOCYTES % (AUTO) 3.7 % (21-51); MEAN CORPUSCULAR HEMOGLOBIN 34.4 PG (27.0-31.0); MEAN CORPUSCULAR HGB CONC 31.8 g/dL (33.0-36.5); MEAN CORPUSCULAR VOLUME 108.3 FL (78-98); MEAN PLATELET VOLUME 9.1 FL (7.4-10.4); MONOCYTES # (AUTO) 1.3 X10'3 (0-0.9); MONOCYTES % (AUTO) 8.3 % (2-12); NEUTROPHILS # (AUTO) 13.5 X10'3 (1.8-7.7); NEUTROPHILS % (AUTO) 87.7 % (42-75); PLATELET COUNT 87 X10'3 (140-440); RED BLOOD COUNT 2.56 X10'6 (4.20-5.60); RED CELL DISTRIBUTION WIDTH 23.2 % (11.5-14.5); WHITE BLOOD COUNT 15.4 X10'3 (4.5-11.0)
[2024-02-03] MEDS: CefTRIAXone 2gm/D5W 50ml BAG 50 ML IV ONE (12:25)
[2024-02-03 12:29] LABS: ALBUMIN 2.6 G/DL (3.4-5.0); ANION GAP 11 (8-16); BLOOD UREA NITROGEN 35 MG/DL (7-18); BUN/CREATININE RATIO 25.7 (10.0-20.0); CALCIUM 8.9 MG/DL (8.5-10.1); CHLORIDE 98 MMOL/L (99-107); CREATININE 1.36 MG/DL (0.40-0.90); GLUCOSE 138 MG/DL (70-104); POTASSIUM 4.9 MMOL/L (3.5-5.1); SODIUM 127 MMOL/L (135-145); eCRCL 28 ML/MIN; eGFR 37 ML/MIN
[2024-02-03 12:40] LABS: ANISOCYTOSIS 3+; PLATELET ESTIMATE DECREASED
[2024-02-03 12:41] LABS: ELLIPTOCYTES FEW; HYPOCHROMASIA 1+; LARGE PLATELETS FEW; POLYCHROMASIA 1+
[2024-02-03 12:42] LABS: SCHISTOCYTES FEW; SPHEROCYTES FEW
[2024-02-03 12:43] LABS: BURR CELLS FEW
[2024-02-03] MEDS: normal saline 1000ML IV soln IVB ONE (13:05)
[2024-02-03 13:14] LABS: BILIRUBIN,URINE NEGATIVE (Neg); CLARITY,URINE CLOUDY (Clear); COLOR,URINE YELLOW (Yellow); GLUCOSE, URINE NEGATIVE (Neg); KETONES,URINE NEGATIVE (Neg); LEUKOCYTE ESTERASE ,URINE SMALL (Neg); NITRITES, URINE POSITIVE (Neg); OCCULT BLOOD,URINE MODERATE (Neg); PH,URINE 5.5 (4.8-8.0); PROTEIN,URINE 100 mg/dl (Neg); UROBILINOGEN,URINE 0.2 E.U/dL (0.2-1.0)
[2024-02-03 13:15] LABS: UA COLLECTION TYPE FOLEY CATH
[2024-02-03 13:22] LABS: SQUAMOUS EPITHELIAL CELL,UR MODERATE /LPF (FEW); WBC,URINE 50-100 /HPF (0-4)
[2024-02-03 13:23] LABS: RBC,URINE 0-2 /HPF (0-2)
[2024-02-03 13:25] LABS: BACTERIA,URINE 4+ /HPF (Neg); TRANSITIONAL EPI CELLS,URINE FEW /HPF
[2024-02-03] MEDS ORDERED: acetaminophen 650mg rectal suppository RC PRN (14:45)
[2024-02-03] MEDS ORDERED: acetaminophen 325mg tablet PO PRN (14:45)
[2024-02-03] MEDS ORDERED: ondansetron 4mg rapidly disintigrating tab PO PRN (14:45)
[2024-02-03] MEDS ORDERED: bisacodyl 10mg suppository rectal RC PRN (14:45)
[2024-02-03] MEDS ORDERED: diphenhydrAMINE 25mg capsule PO PRN (14:45)
[2024-02-03] MEDS ORDERED: diphenhydrAMINE 50 mg/ml inj IV PRN (14:45)
[2024-02-03] MEDS ORDERED: dextrose 50%-water 50ml dispensing syringe IV PRN (14:55)
[2024-02-03] MEDS: normal saline 1000ml 1,000 ML IV SCH (14:55)
[2024-02-03] MEDS ORDERED: glucagon, human recombinant 1mg kit SUBCUT PRN (14:55)
[2024-02-03] MEDS ORDERED: DEXTROSE 15 GM of carb/4 tabs (each vial/BOTTLE has 4 tablets) PO PRN ×2 (14:55)
[2024-02-03 15:28] LABS: APTT 31 SECONDS (22-32); INR 1.4 INR; PROTHROMBIN TIME 14.4 SECONDS (9.0-12.0)
[2024-02-03 15:35] LABS: CREATINE KINASE 13 U/L (26-192); LIPASE 85 U/L (16-77); MAGNESIUM 1.8 MG/DL (1.5-2.4); PHOSPHORUS 2.5 MG/DL (2.3-4.5); PRO BRAIN NATRIURETIC PEPTIDE 25490 PG/ML (0-450)
[2024-02-03] MEDS: ringers solution, lactated 1000ml IV soln IV ONE (16:27)
[2024-02-03] MEDS: INSULIN LISPRO 100 UNIT/ML INSULN.PEN MULTI-DOSE SQ SCH (17:00)
[2024-02-03 17:05] LABS: HEMOGLOBIN A1C 5.6 % (4.5-6.2)
[2024-02-03] MEDS: docusate sod 100mg capsule PO SCH (20:00)
[2024-02-03 22:04] VITALS: BP 98/55; PULSE 73; RESP 22; TEMP 98.6; O2SAT 99
[2024-02-03] MEDS ORDERED: TRAM50TA2 PO (22:42)
[2024-02-03] MEDS ORDERED: ACET650S13 PO (22:49)
[2024-02-03] MEDS ORDERED: LIDO1ADH78 TOP (22:49)
[2024-02-03] MEDS ORDERED: MAG355OR18 PO (22:49)
[2024-02-03] MEDS ORDERED: POLY119P2 PO (22:49)
[2024-02-03] MEDS ORDERED: SENN-294 PO (22:49)
[2024-02-03 22:51] VITALS: BP 108/45
[2024-02-03 23:00] VITALS: RESP 20
[2024-02-03] MEDS: insulin glargine (Lantus) pen - multi-dose SQ SCH (23:43)
[2024-02-03] MEDS: acetaminophen 325mg tablet PO PRN (23:46)
[2024-02-04] VITALS (8 sets, daily range): BP systolic 105–140; BP diastolic 57–75; PULSE 70–78; RESP 16–23; TEMP 96.8–98.1; O2SAT 96–100
[2024-02-04 06:20] LABS: BASOPHILS # (AUTO) 0.1 X10'3 (0-0.2); BASOPHILS % (AUTO) 0.9 % (0-1); EOSINOPHILS % (AUTO) 0.2 % (0-6); HEMOGLOBIN 8.2 g/dl (12.0-16.0); LYMPHOCYTES # (AUTO) 0.8 X10'3 (1.1-4.8); LYMPHOCYTES % (AUTO) 9.6 % (21-51); MEAN CORPUSCULAR HEMOGLOBIN 34.4 PG (27.0-31.0); MEAN CORPUSCULAR HGB CONC 31.6 g/dL (33.0-36.5); MEAN CORPUSCULAR VOLUME 108.8 FL (78-98); MEAN PLATELET VOLUME 9.1 FL (7.4-10.4); MONOCYTES # (AUTO) 0.8 X10'3 (0-0.9); MONOCYTES % (AUTO) 9.7 % (2-12); NEUTROPHILS # (AUTO) 6.4 X10'3 (1.8-7.7); NEUTROPHILS % (AUTO) 79.6 % (42-75); PLATELET COUNT 73 X10'3 (140-440); RED BLOOD COUNT 2.39 X10'6 (4.20-5.60); RED CELL DISTRIBUTION WIDTH 23.6 % (11.5-14.5)
[2024-02-04 06:39] LABS: ALANINE AMINOTRANSFERASE 54 U/L (12-78); ALBUMIN 2.2 G/DL (3.4-5.0); ALBUMIN/GLOBULIN RATIO 0.6 (1.1-1.5); ALKALINE PHOSPHATASE 71 IU/L (46-116); ANION GAP 11 (8-16); ASPARTATE AMINO TRANSFERASE 18 U/L (10-37); BLOOD UREA NITROGEN 26 MG/DL (7-18); BUN/CREATININE RATIO 22.4 (10.0-20.0); CALCIUM 8.3 MG/DL (8.5-10.1); CHLORIDE 103 MMOL/L (99-107); CREATININE 1.16 MG/DL (0.40-0.90); GLUCOSE 121 MG/DL (70-104); HDL CHOLESTEROL 24 MG/DL (35-60); LDL CHOLESTEROL 24 MG/DL (50-100); POTASSIUM 4.8 MMOL/L (3.5-5.1); SODIUM 131 MMOL/L (135-145); TOTAL CARBON DIOXIDE 17.5 MMOL/L (24-32); TOTAL PROTEIN 6.1 G/DL (6.4-8.2); TRIGLYCERIDES 37 MG/DL (20-135); eCRCL 39 ML/MIN; eGFR 44 ML/MIN
[2024-02-04 06:44] LABS: CHOLESTEROL < 50 MG/DL (0-200)
[2024-02-04] MEDS: CefTRIAXone 2gm/D5W 50ml BAG 50 ML IV SCH (07:16)
[2024-02-04] MEDS: pantoprazole 40mg Tablet.DR PO SCH (07:47)
[2024-02-04] MEDS: clindamycin 300mg/D5W 50mL 50 ML IV SCH (08:38)
[2024-02-04] MEDS ORDERED: acetaminophen 650mg rectal suppository RC PRN (10:00)
[2024-02-04] MEDS: ferrous sulfate 325mg tablet PO SCH (10:06)
[2024-02-04] MEDS: morphine 2 MG/ML inj. syringe IV PRN (11:50)
[2024-02-04] MEDS: ondansetron/PF 4mg/2ml inj IV PRN (11:51)
[2024-02-04] MEDS: sacubitril/valsartan 24mg-26mg tablet PO SCH (20:00)
[2024-02-04] MEDS: apixaban 5mg tablet PO SCH (21:57)
[2024-02-04] MEDS: sennosides/docusate sodium tablet PO SCH (21:57)
[2024-02-05] VITALS (16 sets, daily range): BP systolic 105–163; BP diastolic 56–98; PULSE 64–100; RESP 16–28; TEMP 97–97.8; O2SAT 95–100
[2024-02-05 06:19] LABS: ALANINE AMINOTRANSFERASE 52 U/L (12-78); ALBUMIN 2.2 G/DL (3.4-5.0); ALBUMIN/GLOBULIN RATIO 0.6 (1.1-1.5); ALKALINE PHOSPHATASE 65 IU/L (46-116); ANION GAP 10 (8-16); ASPARTATE AMINO TRANSFERASE 19 U/L (10-37); BILIRUBIN,TOTAL 0.8 MG/DL (0.1-1.0); BLOOD UREA NITROGEN 30 MG/DL (7-18); BUN/CREATININE RATIO 23.6 (10.0-20.0); CALCIUM 8.2 MG/DL (8.5-10.1); CHLORIDE 103 MMOL/L (99-107); CREATININE 1.27 MG/DL (0.40-0.90); GLUCOSE 131 MG/DL (70-104); POTASSIUM 5.2 MMOL/L (3.5-5.1); SODIUM 128 MMOL/L (135-145); TOTAL CARBON DIOXIDE 15.1 MMOL/L (24-32); eCRCL 36 ML/MIN; eGFR 40 ML/MIN
[2024-02-05] MEDS: ipratropium/albuterol 3ml nebule NEB PRN (07:08)
[2024-02-05 07:34] LABS: BASOPHILS # (AUTO) 0.1 X10'3 (0-0.2); BASOPHILS % (AUTO) 0.7 % (0-1); EOSINOPHILS # (AUTO) 0.1 X10'3 (0-0.9); EOSINOPHILS % (AUTO) 0.5 % (0-6); HEMATOCRIT 28.7 % (35.0-45.0); HEMOGLOBIN 8.8 g/dl (12.0-16.0); LYMPHOCYTES # (AUTO) 0.8 X10'3 (1.1-4.8); LYMPHOCYTES % (AUTO) 7.9 % (21-51); MEAN CORPUSCULAR HEMOGLOBIN 34.9 PG (27.0-31.0); MEAN CORPUSCULAR HGB CONC 30.6 g/dL (33.0-36.5); MEAN CORPUSCULAR VOLUME 113.9 FL (78-98); MEAN PLATELET VOLUME 9.4 FL (7.4-10.4); MONOCYTES # (AUTO) 0.9 X10'3 (0-0.9); NEUTROPHILS # (AUTO) 8.4 X10'3 (1.8-7.7); NEUTROPHILS % (AUTO) 81.9 % (42-75); RED BLOOD COUNT 2.51 X10'6 (4.20-5.60); RED CELL DISTRIBUTION WIDTH 24.2 % (11.5-14.5); WHITE BLOOD COUNT 10.3 X10'3 (4.5-11.0)
[2024-02-05 07:45] LABS: PLATELET COUNT 49 X10'3 (140-440)
[2024-02-05] MEDS: polyethylene glycol 3350 17gm powd pack PO SCH (08:40)
[2024-02-05] MEDS: atorvastatin 20mg tablet PO SCH (08:41)
[2024-02-05] MEDS: metoprolol succinate 25mg (24-HOUR) SR. Tablet PO SCH (08:42)
[2024-02-05] MEDS: levoTHYROXINE 112mcg tablet PO SCH (08:43)
[2024-02-05] MEDS: LIDOcaine 5% patch TP SCH (08:44)
[2024-02-05] MEDS: sodium bicarbonate (8.4%) 1 mEq/ml syringe IV ONE (16:05)
[2024-02-05 16:09] LABS: ABG BASE EXCESS -12.7 mmol/L (-2.0-2.0); ABG HCO3 11.4 mmol/L (22.0-26.0); ABG OXYGEN SATURATION 94.7 % (92-98.5); ABG PCO2 (T) 20.7 mmHg (32.0-45.0); ABG PH (T) 7.354 (7.350-7.450); ABG PO2 (T) 74.7 mmHg (75.0-100.0); ALLEN'S TEST POSITIVE; FCOHb 0.2 % (0.5-1.5); FHHb 5.3 % (0.0-5.0); FMetHb 0.3 % (0.0-1.5); FO2Hb 94.2 % (94-97); MODE ROOM AIR
[2024-02-05] MEDS: insulin regular, human 10 units/0.1 ml syringe IV ONE (16:13)
[2024-02-05] MEDS: dextrose 50%-water 50ml dispensing syringe IV ONE (16:14)
[2024-02-05 16:36] LABS: CREATINE KINASE 35 U/L (26-192); LACTATE DEHYDROGENASE 375 U/L (81-234)
[2024-02-05] MEDS: sodium bicarbonate (8.4%) inj. 100 MEQ in dextrose 5%-water 1,000 ML IV SCH (17:10)
[2024-02-05] MEDS: sodium polystyrene sulfonate 15gm/60ml oral suspension PO ONE (17:11)
[2024-02-05 17:44] LABS: ANISOCYTOSIS 3+; BURR CELLS 3+; ELLIPTOCYTES 1+; HYPOCHROMASIA 2+; PLATELET ESTIMATE DECREASED; TOTAL CELLS COUNTED 100
[2024-02-05 18:46] LABS: ABG BASE EXCESS -10.7 mmol/L (-2.0-2.0); ABG HCO3 13.3 mmol/L (22.0-26.0); ABG PCO2 (T) 23.5 mmHg (32.0-45.0); ABG PH (T) 7.368 (7.350-7.450); ABG PO2 (T) 81.9 mmHg (75.0-100.0); ALLEN'S TEST POSITIVE; FLOW 1 L/min; MODE NASAL CANNULA; PATIENT TEMPERATURE 36.2
[2024-02-05 18:47] LABS: ABG OXYGEN SATURATION 96.2 % (92-98.5); FCOHb 0.2 % (0.5-1.5); FHHb 3.8 % (0.0-5.0); FMetHb 0.3 % (0.0-1.5); FO2Hb 95.7 % (94-97); TOTAL HEMOGLOBIN 9.8 G/dl (12.0-16.0)
[2024-02-05] MEDS: furosemide 20 MG/2 ML vial IV STA (19:06)
[2024-02-05] MEDS: temazepam 15mg capsule PO PRN (21:40)
[2024-02-05] MEDS: furosemide 40mg/4ml inj IV ONE (21:51)
[2024-02-05 22:35] LABS: ALBUMIN 2.3 G/DL (3.4-5.0); ANION GAP 14 (8-16); BLOOD UREA NITROGEN 26 MG/DL (7-18); BUN/CREATININE RATIO 16.3 (10.0-20.0); CALCIUM 8.1 MG/DL (8.5-10.1); CHLORIDE 99 MMOL/L (99-107); GLUCOSE 212 MG/DL (70-104); SODIUM 129 MMOL/L (135-145); TOTAL CARBON DIOXIDE 16.2 MMOL/L (24-32); eCRCL 28 ML/MIN; eGFR 31 ML/MIN
[2024-02-05] MEDS: vancomycin/NS 1 GM ADD-VANTAGE 250 ML IV ONE (22:36)
[2024-02-05 22:44] LABS: POTASSIUM 4.8 MMOL/L (3.5-5.1)
[2024-02-06] VITALS (20 sets, daily range): BP systolic 101–157; BP diastolic 53–90; PULSE 69–82; RESP 15–24; TEMP 96.9–97.4; O2SAT 95–100
[2024-02-06 06:34] LABS: BASOPHILS # (AUTO) 0.1 X10'3 (0-0.2); BASOPHILS % (AUTO) 0.7 % (0-1); EOSINOPHILS # (AUTO) 0.1 X10'3 (0-0.9); EOSINOPHILS % (AUTO) 0.8 % (0-6); HEMATOCRIT 26.1 % (35.0-45.0); HEMOGLOBIN 8.2 g/dl (12.0-16.0); LYMPHOCYTES # (AUTO) 1.2 X10'3 (1.1-4.8); LYMPHOCYTES % (AUTO) 15.6 % (21-51); MEAN CORPUSCULAR HEMOGLOBIN 34.4 PG (27.0-31.0); MEAN CORPUSCULAR HGB CONC 31.4 g/dL (33.0-36.5); MEAN CORPUSCULAR VOLUME 109.3 FL (78-98); MONOCYTES % (AUTO) 13.5 % (2-12); NEUTROPHILS # (AUTO) 5.4 X10'3 (1.8-7.7); NEUTROPHILS % (AUTO) 69.4 % (42-75); PLATELET COUNT 79 X10'3 (140-440); RED BLOOD COUNT 2.39 X10'6 (4.20-5.60); RED CELL DISTRIBUTION WIDTH 24.1 % (11.5-14.5); WHITE BLOOD COUNT 7.8 X10'3 (4.5-11.0)
[2024-02-06 07:53] LABS: ALANINE AMINOTRANSFERASE 48 U/L (12-78); ALBUMIN 2.3 G/DL (3.4-5.0); ALBUMIN/GLOBULIN RATIO 0.6 (1.1-1.5); ALKALINE PHOSPHATASE 74 IU/L (46-116); ANION GAP 11 (8-16); ASPARTATE AMINO TRANSFERASE 27 U/L (10-37); BILIRUBIN,TOTAL 0.7 MG/DL (0.1-1.0); BLOOD UREA NITROGEN 28 MG/DL (7-18); BUN/CREATININE RATIO 18.4 (10.0-20.0); CALCIUM 7.9 MG/DL (8.5-10.1); CHLORIDE 100 MMOL/L (99-107); CREATININE 1.52 MG/DL (0.40-0.90); FREE T4 (FREE THYROXINE) 1.07 NG/DL (0.73-1.40); GLUCOSE 150 MG/DL (70-104); POTASSIUM 4.1 MMOL/L (3.5-5.1); SODIUM 131 MMOL/L (135-145); TOTAL CARBON DIOXIDE 19.9 MMOL/L (24-32); TOTAL PROTEIN 6.3 G/DL (6.4-8.2); eCRCL 30 ML/MIN; eGFR 32 ML/MIN
[2024-02-06 08:16] LABS: ANISOCYTOSIS 3+; BURR CELLS 1+; ELLIPTOCYTES FEW; PLATELET ESTIMATE DECREASED; POIKILOCYTOSIS FEW
[2024-02-06 10:23] LABS: BILIRUBIN,URINE NEGATIVE (Neg); COLOR,URINE YELLOW (Yellow); GLUCOSE, URINE NEGATIVE (Neg); KETONES,URINE NEGATIVE (Neg); LEUKOCYTE ESTERASE ,URINE TRACE (Neg); NITRITES, URINE POSITIVE (Neg); OCCULT BLOOD,URINE TRACE-INTACT (Neg); PH,URINE 5.5 (4.8-8.0); PROTEIN,URINE 30 mg/dl (Neg); UROBILINOGEN,URINE 0.2 E.U/dL (0.2-1.0)
[2024-02-06 10:27] LABS: CLARITY,URINE Slightly Cloudy (Clear); UA COLLECTION TYPE FOLEY CATH
[2024-02-06 10:28] LABS: BACTERIA,URINE 2+ /HPF (Neg); MUCUS STRANDS FEW /LPF (Neg); RBC,URINE 0-2 /HPF (0-2); SQUAMOUS EPITHELIAL CELL,UR FEW /LPF (FEW); TRANSITIONAL EPI CELLS,URINE FEW /HPF
[2024-02-06] MEDS ORDERED: levoFLOXACIN 750MG TABLET PO SCH (11:45)
[2024-02-06] MEDS: DOBUTamine-DoBUTrex 500mg/D5W 250 ML IV SCH (13:05)
[2024-02-06 13:54] LABS: D-DIMER 6.19 MG/L FEU (0-0.50)
[2024-02-06 13:57] LABS: PRO BRAIN NATRIURETIC PEPTIDE 28400 PG/ML (0-450)
[2024-02-06] MEDS: furosemide 40mg/4ml inj IV ONE (14:01)
[2024-02-06] MEDS: cefepime 2g/NS 100ml ADVANTAGE 100 ML IV SCH (16:27)
[2024-02-06] MEDS: furosemide 20 MG/2 ML vial IV SCH (19:50)
[2024-02-06] MEDS: apixaban 2.5mg tablet PO SCH (19:51)
[2024-02-06] MEDS: vancomycin/NS 1 GM ADD-VANTAGE 250 ML X 1 DOSE IV SCH (19:52)
[2024-02-06] MEDS: sildenafil citrate 20mg tablet PO SCH (20:53)
[2024-02-06] MEDS ORDERED: vancomycin/NS 1 GM ADD-VANTAGE 250 ML IV SCH (21:00)
[2024-02-06] MEDS: mag hydrox/Alum hydrox/simeth 30ml oral suspension PO PRN (21:13)
[2024-02-07] VITALS (15 sets, daily range): BP systolic 95–136; BP diastolic 48–69; PULSE 70–80; RESP 12–25; TEMP 96.6–97.6; O2SAT 96–100
[2024-02-07 06:04] LABS: BASOPHILS # (AUTO) 0.1 X10'3 (0-0.2); BASOPHILS % (AUTO) 0.9 % (0-1); EOSINOPHILS # (AUTO) 0.2 X10'3 (0-0.9); EOSINOPHILS % (AUTO) 2.6 % (0-6); HEMATOCRIT 23.4 % (35.0-45.0); HEMOGLOBIN 7.4 g/dl (12.0-16.0); LYMPHOCYTES # (AUTO) 0.7 X10'3 (1.1-4.8); LYMPHOCYTES % (AUTO) 9.3 % (21-51); MEAN CORPUSCULAR HEMOGLOBIN 34.8 PG (27.0-31.0); MEAN CORPUSCULAR HGB CONC 31.7 g/dL (33.0-36.5); MEAN CORPUSCULAR VOLUME 109.7 FL (78-98); MEAN PLATELET VOLUME 9.5 FL (7.4-10.4); MONOCYTES # (AUTO) 0.7 X10'3 (0-0.9); MONOCYTES % (AUTO) 8.7 % (2-12); NEUTROPHILS # (AUTO) 6.2 X10'3 (1.8-7.7); NEUTROPHILS % (AUTO) 78.5 % (42-75); PLATELET COUNT 65 X10'3 (140-440); RED BLOOD COUNT 2.13 X10'6 (4.20-5.60); RED CELL DISTRIBUTION WIDTH 24.4 % (11.5-14.5)
[2024-02-07 06:12] LABS: ALANINE AMINOTRANSFERASE 34 U/L (12-78); ALBUMIN 1.8 G/DL (3.4-5.0); ALBUMIN/GLOBULIN RATIO 0.5 (1.1-1.5); ALKALINE PHOSPHATASE 54 IU/L (46-116); ANION GAP 9 (8-16); ASPARTATE AMINO TRANSFERASE 27 U/L (10-37); BILIRUBIN,TOTAL 0.5 MG/DL (0.1-1.0); BLOOD UREA NITROGEN 21 MG/DL (7-18); BUN/CREATININE RATIO 17.8 (10.0-20.0); CALCIUM 7.4 MG/DL (8.5-10.1); CHLORIDE 102 MMOL/L (99-107); CREATININE 1.18 MG/DL (0.40-0.90); GLUCOSE 91 MG/DL (70-104); SODIUM 135 MMOL/L (135-145); TOTAL CARBON DIOXIDE 24.4 MMOL/L (24-32); TOTAL PROTEIN 5.1 G/DL (6.4-8.2); eCRCL 38 ML/MIN; eGFR 43 ML/MIN
[2024-02-07] MEDS: levoTHYROXINE 75mcg tablet PO SCH (07:00)
[2024-02-07 07:42] LABS: ANISOCYTOSIS 3+; ELLIPTOCYTES FEW; HYPOCHROMASIA 1+; NUCLEATED RED BLOOD CELLS 1 /100WBC (0-0); PLATELET ESTIMATE DECREASED; TOTAL CELLS COUNTED 100
[2024-02-07 07:43] LABS: BURR CELLS 2+
[2024-02-07] MEDS ORDERED: magnesium Cl slow-release 64mg tablet PO PRN (11:35)
[2024-02-07] MEDS ORDERED: magnesium sulf-water 2g/50mL 50 ML IV PRN (11:35)
[2024-02-07] MEDS ORDERED: magnesium sulf-water 4G/100mL 100 ML IV PRN (11:35)
[2024-02-07] MEDS ORDERED: potassium Cl 20 mEq SR tablet PO PRN ×2 (11:35)
[2024-02-07] MEDS: lactose-reduced food (Ensure Enlive) - 237ml bottle PO SCH (13:00)
[2024-02-07 15:45] LABS: ALBUMIN 1.9 G/DL (3.4-5.0); ANION GAP 6 (8-16); BLOOD UREA NITROGEN 21 MG/DL (7-18); BUN/CREATININE RATIO 17.4 (10.0-20.0); CHLORIDE 101 MMOL/L (99-107); CREATININE 1.21 MG/DL (0.40-0.90); GLUCOSE 92 MG/DL (70-104); SODIUM 134 MMOL/L (135-145); TOTAL CARBON DIOXIDE 27.4 MMOL/L (24-32); VANCOMYCIN,TROUGH 7.7 ug/mL (10.0-20.0); eCRCL 37 ML/MIN; eGFR 42 ML/MIN
[2024-02-07 15:51] LABS: POTASSIUM 2.9 MMOL/L (3.5-5.1)
[2024-02-07] MEDS: potassium Cl 40MEQ/1/2NS 520ml 520 ML IV PRN (16:50)
[2024-02-07] MEDS: polyethylene glycol 3350 17gm powd pack PO SCH (21:31)
[2024-02-07] MEDS: K and/or MAG REPLACEMENT MC SCH (21:32)
[2024-02-07] MEDS: albumin (human) 25% 100 ML IV solution IV ONE (21:43)
[2024-02-07] MEDS: VANCOmycin 1250MG/NS 250ml Bag 250 ML IV SCH (23:35)
[2024-02-08] VITALS (16 sets, daily range): BP systolic 94–138; BP diastolic 42–71; PULSE 66–75; RESP 15–25; TEMP 96.7–98.2; O2SAT 91–99
[2024-02-08] MEDS: albumin (human) 25% 100ml IV 100 ML IV ONE (09:12)
[2024-02-08] MEDS: metoprolol succinate 25mg (24-HOUR) SR. Tablet PO SCH (09:17)
[2024-02-08 09:46] LABS: ALANINE AMINOTRANSFERASE 35 U/L (12-78); ALBUMIN/GLOBULIN RATIO 0.6 (1.1-1.5); ALKALINE PHOSPHATASE 68 IU/L (46-116); ANION GAP 8 (8-16); ASPARTATE AMINO TRANSFERASE 31 U/L (10-37); BILIRUBIN,TOTAL 0.8 MG/DL (0.1-1.0); BLOOD UREA NITROGEN 19 MG/DL (7-18); BUN/CREATININE RATIO 18.3 (10.0-20.0); CALCIUM 8.3 MG/DL (8.5-10.1); CHLORIDE 101 MMOL/L (99-107); CREATININE 1.04 MG/DL (0.40-0.90); GLUCOSE 121 MG/DL (70-104); MAGNESIUM 1.7 MG/DL (1.5-2.4); POTASSIUM 4.1 MMOL/L (3.5-5.1); PRO BRAIN NATRIURETIC PEPTIDE 12458 PG/ML (0-450); SODIUM 131 MMOL/L (135-145); TOTAL CARBON DIOXIDE 21.9 MMOL/L (24-32); TOTAL PROTEIN 5.6 G/DL (6.4-8.2); eCRCL 43 ML/MIN; eGFR 50 ML/MIN
[2024-02-08] MEDS: HYDROcodone/acetaminophen 5mg/325mg tablet PO PRN (10:04)
[2024-02-08 10:11] LABS: C-REACTIVE PROTEIN 3.15 MG/DL (0.0-0.5)
[2024-02-08] MEDS: morphine 2 MG/ML inj. syringe IV PRN (10:16)
[2024-02-08 10:51] LABS: HAPTOGLOBIN 153 mg/dL (41-333)
[2024-02-08] MEDS: furosemide 20 MG/2 ML vial IV SCH (14:52)
[2024-02-08 16:17] LABS: A/G RATIO 0.7 (0.7-1.7); ALBUMIN 2.5 g/dL (2.9-4.4); ALPHA-1-GLOBULIN 0.4 g/dL (0.0-0.4); ALPHA-2-GLOBULIN 0.7 g/dL (0.4-1.0); BETA GLOBULIN 0.8 g/dL (0.7-1.3); GAMMA GLOBULIN 1.6 g/dL (0.4-1.8); GLOBULIN, TOTAL 3.5 g/dL (2.2-3.9); M-SPIKE Not Observed g/dL (Not Observed)
[2024-02-08] MEDS: apixaban 5mg tablet PO SCH (20:24)
[2024-02-09] VITALS (14 sets, daily range): BP systolic 102–135; BP diastolic 49–66; PULSE 68–105; RESP 18–35; TEMP 97–97.9; O2SAT 91–99
[2024-02-09 06:53] LABS: RED BLOOD COUNT 2.55 X10'6 (4.20-5.60); RETICULOCYTE % (AUTO) 2.4 % (0.5-1.5)
[2024-02-09] MEDS: dextrose 50%-water 50ml dispensing syringe IV PRN (07:01)
[2024-02-09 07:02] LABS: MAGNESIUM 1.7 MG/DL (1.5-2.4)
[2024-02-09 07:16] LABS: % IRON SATURATION 20 % (11-46); IRON 47 UG/DL (49-151); TOTAL IRON BINDING CAPACITY 239 UG/DL (259-388)
[2024-02-09] MEDS: folic acid/vitamin B complex w/vitamin C 0.8mg tablet PO SCH (08:41)
[2024-02-09 08:57] LABS: BASOPHILS # (AUTO) 0.1 X10'3 (0-0.2); BASOPHILS % (AUTO) 0.7 % (0-1); EOSINOPHILS # (AUTO) 0.1 X10'3 (0-0.9); EOSINOPHILS % (AUTO) 1.4 % (0-6); HEMATOCRIT 27.6 % (35.0-45.0); HEMOGLOBIN 8.7 g/dl (12.0-16.0); LYMPHOCYTES # (AUTO) 0.9 X10'3 (1.1-4.8); LYMPHOCYTES % (AUTO) 9.2 % (21-51); MEAN CORPUSCULAR HEMOGLOBIN 34.5 PG (27.0-31.0); MEAN CORPUSCULAR HGB CONC 31.6 g/dL (33.0-36.5); MEAN CORPUSCULAR VOLUME 109.3 FL (78-98); MEAN PLATELET VOLUME 9.2 FL (7.4-10.4); MONOCYTES # (AUTO) 0.9 X10'3 (0-0.9); MONOCYTES % (AUTO) 8.5 % (2-12); NEUTROPHILS # (AUTO) 8.1 X10'3 (1.8-7.7); NEUTROPHILS % (AUTO) 80.2 % (42-75); PLATELET COUNT 74 X10'3 (140-440); RED BLOOD COUNT 2.52 X10'6 (4.20-5.60); WHITE BLOOD COUNT 10.1 X10'3 (4.5-11.0)
[2024-02-09 08:58] LABS: ALANINE AMINOTRANSFERASE 30 U/L (12-78); ALBUMIN 2.7 G/DL (3.4-5.0); ALBUMIN/GLOBULIN RATIO 0.8 (1.1-1.5); ALKALINE PHOSPHATASE 65 IU/L (46-116); ANION GAP 6 (8-16); ASPARTATE AMINO TRANSFERASE 21 U/L (10-37); BILIRUBIN,TOTAL 0.9 MG/DL (0.1-1.0); BLOOD UREA NITROGEN 20 MG/DL (7-18); BUN/CREATININE RATIO 17.7 (10.0-20.0); CALCIUM 8.8 MG/DL (8.5-10.1); CHLORIDE 102 MMOL/L (99-107); CREATININE 1.13 MG/DL (0.40-0.90); GLUCOSE 50 MG/DL (70-104); SODIUM 135 MMOL/L (135-145); TOTAL CARBON DIOXIDE 26.9 MMOL/L (24-32); TOTAL PROTEIN 6.1 G/DL (6.4-8.2); eCRCL 40 ML/MIN; eGFR 46 ML/MIN
[2024-02-09 11:06] LABS: ALBUMIN, UR Note: % (.); PROTEIN,TOTAL,URINE 82.2 mg/dL (Not Estab.)
[2024-02-09] MEDS: furosemide 40mg/4ml inj IV ONE (12:39)
[2024-02-09] MEDS: furosemide 40mg/4ml inj IV SCH (15:48)
[2024-02-09] MEDS: metolazone 2.5mg tablet PO SCH (20:28)
[2024-02-09] MEDS: VANCOMYCIN LEVEL IV SCH (21:30)
[2024-02-10] VITALS (12 sets, daily range): BP systolic 99–123; BP diastolic 54–65; PULSE 70–85; RESP 15–24; TEMP 97.3–97.9; O2SAT 92–100
[2024-02-10 00:30] LABS: MAGNESIUM 1.7 MG/DL (1.5-2.4); POTASSIUM 4.5 MMOL/L (3.5-5.1)
[2024-02-10 08:34] LABS: BASOPHILS % (AUTO) 0.5 % (0-1); EOSINOPHILS % (AUTO) 0.1 % (0-6); HEMOGLOBIN 8.8 g/dl (12.0-16.0); LYMPHOCYTES # (AUTO) 0.8 X10'3 (1.1-4.8); LYMPHOCYTES % (AUTO) 8.6 % (21-51); MEAN CORPUSCULAR HEMOGLOBIN 34.9 PG (27.0-31.0); MEAN CORPUSCULAR HGB CONC 31.3 g/dL (33.0-36.5); MEAN CORPUSCULAR VOLUME 111.5 FL (78-98); MEAN PLATELET VOLUME 9.5 FL (7.4-10.4); MONOCYTES # (AUTO) 0.8 X10'3 (0-0.9); MONOCYTES % (AUTO) 8.8 % (2-12); NEUTROPHILS # (AUTO) 7.6 X10'3 (1.8-7.7); PLATELET COUNT 88 X10'3 (140-440); RED BLOOD COUNT 2.52 X10'6 (4.20-5.60); WHITE BLOOD COUNT 9.2 X10'3 (4.5-11.0)
[2024-02-10 09:01] LABS: ALANINE AMINOTRANSFERASE 33 U/L (12-78); ALBUMIN 2.9 G/DL (3.4-5.0); ALBUMIN/GLOBULIN RATIO 0.8 (1.1-1.5); ALKALINE PHOSPHATASE 68 IU/L (46-116); ANION GAP 10 (8-16); ASPARTATE AMINO TRANSFERASE 37 U/L (10-37); BILIRUBIN,TOTAL 2.1 MG/DL (0.1-1.0); BLOOD UREA NITROGEN 24 MG/DL (7-18); CALCIUM 9.2 MG/DL (8.5-10.1); CHLORIDE 99 MMOL/L (99-107); GLUCOSE 110 MG/DL (70-104); POTASSIUM 4.9 MMOL/L (3.5-5.1); SODIUM 131 MMOL/L (135-145); TOTAL CARBON DIOXIDE 21.8 MMOL/L (24-32); TOTAL PROTEIN 6.5 G/DL (6.4-8.2); eCRCL 30 ML/MIN; eGFR 33 ML/MIN
[2024-02-10] MEDS: midodrine tablet 2.5 MG TABLET PO SCH (16:28)
[2024-02-10] MEDS: insulin glargine (Lantus) pen - multi-dose SQ SCH (21:00)
[2024-02-11] VITALS (12 sets, daily range): BP systolic 102–141; BP diastolic 62–70; PULSE 70–72; RESP 16–28; TEMP 96.8–98.6; O2SAT 97–100
[2024-02-11] MEDS: methylPREDNISolone sod succ 125mg/2ml vial IV SCH (00:01)
[2024-02-11] MEDS: vancomycin/NS 1 GM ADD-VANTAGE 250 ML X 1 DOSE IV SCH (00:03)
[2024-02-11 06:59] LABS: MONOCYTES # (AUTO) 0.2 X10'3 (0-0.9); MONOCYTES % (AUTO) 3.9 % (2-12)
[2024-02-11 07:03] LABS: BASOPHILS % (AUTO) 0.3 % (0-1); EOSINOPHILS % (AUTO) 0 % (0-6); HEMATOCRIT 29.1 % (35.0-45.0); HEMOGLOBIN 9.2 g/dl (12.0-16.0); LYMPHOCYTES # (AUTO) 0.6 X10'3 (1.1-4.8); MEAN CORPUSCULAR HGB CONC 31.7 g/dL (33.0-36.5); MEAN CORPUSCULAR VOLUME 110.4 FL (78-98); MEAN PLATELET VOLUME 9.4 FL (7.4-10.4); NEUTROPHILS # (AUTO) 4.3 X10'3 (1.8-7.7); NEUTROPHILS % (AUTO) 84.8 % (42-75); PLATELET COUNT 74 X10'3 (140-440); RED BLOOD COUNT 2.63 X10'6 (4.20-5.60); WHITE BLOOD COUNT 5.1 X10'3 (4.5-11.0)
[2024-02-11 07:24] LABS: ALANINE AMINOTRANSFERASE 119 U/L (12-78); ALBUMIN 2.9 G/DL (3.4-5.0); ALBUMIN/GLOBULIN RATIO 0.8 (1.1-1.5); ALKALINE PHOSPHATASE 71 IU/L (46-116); ANION GAP 16 (8-16); ASPARTATE AMINO TRANSFERASE 184 U/L (10-37); BILIRUBIN,TOTAL 2.4 MG/DL (0.1-1.0); BLOOD UREA NITROGEN 36 MG/DL (7-18); BUN/CREATININE RATIO 16.7 (10.0-20.0); CALCIUM 8.8 MG/DL (8.5-10.1); CHLORIDE 98 MMOL/L (99-107); CREATININE 2.15 MG/DL (0.40-0.90); GLUCOSE 139 MG/DL (70-104); MAGNESIUM 1.9 MG/DL (1.5-2.4); POTASSIUM 5.2 MMOL/L (3.5-5.1); SODIUM 134 MMOL/L (135-145); TOTAL CARBON DIOXIDE 19.8 MMOL/L (24-32); TOTAL PROTEIN 6.4 G/DL (6.4-8.2); eCRCL 21 ML/MIN; eGFR 22 ML/MIN
[2024-02-11] MEDS: LIDOcaine/PRILOcaine 5gm cream TP PRN (12:46)
[2024-02-11] MEDS: benzonatate 100mg capsule PO SCH (15:10)
[2024-02-11] MEDS: furosemide 40mg/4ml inj IV SCH (23:53)
[2024-02-12] VITALS (8 sets, daily range): BP systolic 101–119; BP diastolic 56–60; PULSE 70–75; RESP 17–18; TEMP 97–98.1; O2SAT 94–100
[2024-02-12 08:41] LABS: BASOPHILS % (AUTO) 0.3 % (0-1); EOSINOPHILS % (AUTO) 0 % (0-6); HEMATOCRIT 26.7 % (35.0-45.0); HEMOGLOBIN 8.6 g/dl (12.0-16.0); LYMPHOCYTES # (AUTO) 0.3 X10'3 (1.1-4.8); LYMPHOCYTES % (AUTO) 5.6 % (21-51); MEAN CORPUSCULAR HEMOGLOBIN 34.6 PG (27.0-31.0); MEAN CORPUSCULAR VOLUME 108.2 FL (78-98); MEAN PLATELET VOLUME 9.5 FL (7.4-10.4); MONOCYTES # (AUTO) 0.6 X10'3 (0-0.9); MONOCYTES % (AUTO) 10.4 % (2-12); NEUTROPHILS # (AUTO) 4.7 X10'3 (1.8-7.7); NEUTROPHILS % (AUTO) 83.7 % (42-75); PLATELET COUNT 89 X10'3 (140-440); RED BLOOD COUNT 2.47 X10'6 (4.20-5.60); RED CELL DISTRIBUTION WIDTH 23.5 % (11.5-14.5); WHITE BLOOD COUNT 5.6 X10'3 (4.5-11.0)
[2024-02-12 09:27] LABS: PLATELET ESTIMATE DECREASED
[2024-02-12 09:28] LABS: ANISOCYTOSIS 3+; POIKILOCYTOSIS FEW
[2024-02-12 09:49] LABS: ALANINE AMINOTRANSFERASE 144 U/L (12-78); ALBUMIN 2.8 G/DL (3.4-5.0); ALBUMIN/GLOBULIN RATIO 0.8 (1.1-1.5); ALKALINE PHOSPHATASE 70 IU/L (46-116); ANION GAP 13 (8-16); ASPARTATE AMINO TRANSFERASE 160 U/L (10-37); BILIRUBIN,TOTAL 1.7 MG/DL (0.1-1.0); BLOOD UREA NITROGEN 53 MG/DL (7-18); BUN/CREATININE RATIO 21.4 (10.0-20.0); CALCIUM 8.8 MG/DL (8.5-10.1); CHLORIDE 97 MMOL/L (99-107); CREATININE 2.48 MG/DL (0.40-0.90); GLUCOSE 149 MG/DL (70-104); POTASSIUM 4.6 MMOL/L (3.5-5.1); SODIUM 135 MMOL/L (135-145); TOTAL CARBON DIOXIDE 24.9 MMOL/L (24-32); TOTAL PROTEIN 6.4 G/DL (6.4-8.2); eCRCL 18 ML/MIN; eGFR 18 ML/MIN
[2024-02-12] MEDS ORDERED: furosemide 40mg/4ml inj IV SCH (11:00)
[2024-02-12] MEDS: morphine 4 MG/ML inj SYRINge IV ONE (11:50)
[2024-02-12] MEDS: furosemide inj 100 MG in normal saline 100ml IV soln 90 ML IV SCH (13:02)
[2024-02-12] MEDS: oxyCODONE/APAP 5-325mg tablet PO PRN (14:44)
[2024-02-12] MEDS: oxyCODONE/APAP 10/325mg tablet PO PRN (20:56)
[2024-02-12 21:01] LABS: ALBUMIN 2.7 G/DL (3.4-5.0); ANION GAP 10 (8-16); BLOOD UREA NITROGEN 57 MG/DL (7-18); BUN/CREATININE RATIO 21.2 (10.0-20.0); CALCIUM 8.5 MG/DL (8.5-10.1); CHLORIDE 98 MMOL/L (99-107); CREATININE 2.69 MG/DL (0.40-0.90); GLUCOSE 187 MG/DL (70-104); PHOSPHORUS 5.2 MG/DL (2.3-4.5); POTASSIUM 4.4 MMOL/L (3.5-5.1); SODIUM 136 MMOL/L (135-145); TOTAL CARBON DIOXIDE 27.9 MMOL/L (24-32); eCRCL 17 ML/MIN; eGFR 17 ML/MIN
[2024-02-13] VITALS (11 sets, daily range): BP systolic 102–127; BP diastolic 57–69; PULSE 69–76; RESP 16–22; TEMP 96.8–98; O2SAT 93–100
[2024-02-13] MEDS: VANCOMYCIN 750MG IV in NS 250 ML IV SCH (00:24)
[2024-02-13 13:02] LABS: ALANINE AMINOTRANSFERASE 137 U/L (12-78); ALBUMIN/GLOBULIN RATIO 0.8 (1.1-1.5); ALKALINE PHOSPHATASE 89 IU/L (46-116); ANION GAP 10 (8-16); ASPARTATE AMINO TRANSFERASE 107 U/L (10-37); BILIRUBIN,TOTAL 1.8 MG/DL (0.1-1.0); BLOOD UREA NITROGEN 72 MG/DL (7-18); CHLORIDE 97 MMOL/L (99-107); CREATININE 2.67 MG/DL (0.40-0.90); GLUCOSE 211 MG/DL (70-104); PHOSPHORUS 5.3 MG/DL (2.3-4.5); POTASSIUM 3.8 MMOL/L (3.5-5.1); SODIUM 136 MMOL/L (135-145); TOTAL PROTEIN 6.7 G/DL (6.4-8.2); eCRCL 17 ML/MIN; eGFR 17 ML/MIN
[2024-02-13 13:04] LABS: BASOPHILS # (AUTO) 0.1 X10'3 (0-0.2); BASOPHILS % (AUTO) 0.3 % (0-1); EOSINOPHILS % (AUTO) 0 % (0-6); HEMATOCRIT 27.2 % (35.0-45.0); HEMOGLOBIN 8.8 g/dl (12.0-16.0); LYMPHOCYTES # (AUTO) 0.2 X10'3 (1.1-4.8); LYMPHOCYTES % (AUTO) 1.3 % (21-51); MEAN CORPUSCULAR HGB CONC 32.2 g/dL (33.0-36.5); MEAN CORPUSCULAR VOLUME 108.6 FL (78-98); MEAN PLATELET VOLUME 9.7 FL (7.4-10.4); MONOCYTES # (AUTO) 0.8 X10'3 (0-0.9); MONOCYTES % (AUTO) 4.6 % (2-12); NEUTROPHILS # (AUTO) 15.5 X10'3 (1.8-7.7); NEUTROPHILS % (AUTO) 93.8 % (42-75); PLATELET COUNT 84 X10'3 (140-440); RED BLOOD COUNT 2.51 X10'6 (4.20-5.60); RED CELL DISTRIBUTION WIDTH 23.4 % (11.5-14.5); WHITE BLOOD COUNT 16.5 X10'3 (4.5-11.0)
[2024-02-13 20:49] LABS: ABG BASE EXCESS 2.3 mmol/L (-2.0-2.0); ABG OXYGEN SATURATION 98.9 % (92-98.5); ABG PCO2 (T) 35.7 mmHg (32.0-45.0); ABG PH (T) 7.479 (7.350-7.450); ABG PO2 (T) 122.4 mmHg (75.0-100.0); ALLEN'S TEST POSITIVE; FCOHb 0.7 % (0.5-1.5); FHHb 1.1 % (0.0-5.0); FLOW 2 L/min; FMetHb 0.3 % (0.0-1.5); FO2Hb 97.9 % (94-97); MODE NASAL CANNULA; PATIENT TEMPERATURE 36.5
[2024-02-14] VITALS (8 sets, daily range): BP systolic 96–124; BP diastolic 45–62; PULSE 64–75; RESP 14–23; TEMP 97–98.1; O2SAT 92–99
[2024-02-14 07:04] LABS: HEMOGLOBIN 8.3 g/dl (12.0-16.0)
[2024-02-14 07:08] LABS: HEMATOCRIT 25.6 % (35.0-45.0); MEAN CORPUSCULAR HEMOGLOBIN 35.3 PG (27.0-31.0); MEAN CORPUSCULAR HGB CONC 32.6 g/dL (33.0-36.5); MEAN CORPUSCULAR VOLUME 108.3 FL (78-98); MEAN PLATELET VOLUME 9.6 FL (7.4-10.4); PLATELET COUNT 74 X10'3 (140-440); RED BLOOD COUNT 2.36 X10'6 (4.20-5.60); WHITE BLOOD COUNT 8.7 X10'3 (4.5-11.0)
[2024-02-14 07:26] LABS: ALANINE AMINOTRANSFERASE 115 U/L (12-78); ALBUMIN 2.8 G/DL (3.4-5.0); ALBUMIN/GLOBULIN RATIO 0.8 (1.1-1.5); ALKALINE PHOSPHATASE 77 IU/L (46-116); ANION GAP 9 (8-16); ASPARTATE AMINO TRANSFERASE 85 U/L (10-37); BILIRUBIN,TOTAL 1.5 MG/DL (0.1-1.0); BLOOD UREA NITROGEN 70 MG/DL (7-18); BUN/CREATININE RATIO 27.9 (10.0-20.0); CALCIUM 9.3 MG/DL (8.5-10.1); CHLORIDE 99 MMOL/L (99-107); CREATININE 2.51 MG/DL (0.40-0.90); GLUCOSE 181 MG/DL (70-104); SODIUM 135 MMOL/L (135-145); TOTAL CARBON DIOXIDE 27.2 MMOL/L (24-32); TOTAL PROTEIN 6.4 G/DL (6.4-8.2); eCRCL 18 ML/MIN; eGFR 18 ML/MIN
[2024-02-14 07:34] LABS: POTASSIUM 4.2 MMOL/L (3.5-5.1)
[2024-02-14 09:10] LABS: ANISOCYTOSIS 3+; NUCLEATED RED BLOOD CELLS 3 /100WBC (0-0); PLATELET ESTIMATE DECREASED; TOTAL CELLS COUNTED 100
[2024-02-14 09:11] LABS: BURR CELLS 1+; POLYCHROMASIA 1+; ROULEAUX 1+; TARGET CELLS FEW
[2024-02-14] MEDS: EPOETIN ALFA-EPBX 20,000 UNIT/ML 1 ML MDV SQ ONE (18:47)
[2024-02-15] VITALS (13 sets, daily range): BP systolic 107–127; BP diastolic 53–68; PULSE 68–72; RESP 15–20; TEMP 97.1–97.5; O2SAT 95–99
[2024-02-15 15:48] LABS: EOSINOPHILS % (AUTO) 0 % (0-6); LYMPHOCYTES # (AUTO) 0.4 X10'3 (1.1-4.8); PLATELET COUNT 95 X10'3 (140-440)
[2024-02-15 15:50] LABS: BASOPHILS % (AUTO) 0.1 % (0-1); HEMATOCRIT 26.3 % (35.0-45.0); HEMOGLOBIN 8.6 g/dl (12.0-16.0); LYMPHOCYTES % (AUTO) 3.1 % (21-51); MEAN CORPUSCULAR HEMOGLOBIN 35.1 PG (27.0-31.0); MEAN CORPUSCULAR HGB CONC 32.7 g/dL (33.0-36.5); MEAN CORPUSCULAR VOLUME 107.3 FL (78-98); MEAN PLATELET VOLUME 9.9 FL (7.4-10.4); MONOCYTES # (AUTO) 0.7 X10'3 (0-0.9); MONOCYTES % (AUTO) 6.2 % (2-12); NEUTROPHILS # (AUTO) 10.9 X10'3 (1.8-7.7); NEUTROPHILS % (AUTO) 90.6 % (42-75); RED BLOOD COUNT 2.45 X10'6 (4.20-5.60); RED CELL DISTRIBUTION WIDTH 23.4 % (11.5-14.5); WHITE BLOOD COUNT 12.1 X10'3 (4.5-11.0)
[2024-02-15 16:00] LABS: ALBUMIN 3.1 G/DL (3.4-5.0); ANION GAP 9 (8-16); BLOOD UREA NITROGEN 84 MG/DL (7-18); BUN/CREATININE RATIO 32.7 (10.0-20.0); CALCIUM 9.8 MG/DL (8.5-10.1); CHLORIDE 99 MMOL/L (99-107); CREATININE 2.57 MG/DL (0.40-0.90); GLUCOSE 148 MG/DL (70-104); PHOSPHORUS 4.7 MG/DL (2.3-4.5); POTASSIUM 3.3 MMOL/L (3.5-5.1); SODIUM 140 MMOL/L (135-145); TOTAL CARBON DIOXIDE 31.7 MMOL/L (24-32); eCRCL 17 ML/MIN; eGFR 18 ML/MIN
[2024-02-15 16:03] LABS: ALANINE AMINOTRANSFERASE 94 U/L (12-78); ALBUMIN 3.1 G/DL (3.4-5.0); ALBUMIN/GLOBULIN RATIO 0.9 (1.1-1.5); ALKALINE PHOSPHATASE 85 IU/L (46-116); ANION GAP 10 (8-16); ASPARTATE AMINO TRANSFERASE 56 U/L (10-37); BLOOD UREA NITROGEN 88 MG/DL (7-18); BUN/CREATININE RATIO 33.5 (10.0-20.0); CALCIUM 9.4 MG/DL (8.5-10.1); CHLORIDE 99 MMOL/L (99-107); CREATININE 2.63 MG/DL (0.40-0.90); GLUCOSE 147 MG/DL (70-104); MAGNESIUM 2.1 MG/DL (1.5-2.4); PHOSPHORUS 4.7 MG/DL (2.3-4.5); POTASSIUM 3.3 MMOL/L (3.5-5.1); SODIUM 140 MMOL/L (135-145); TOTAL CARBON DIOXIDE 31.3 MMOL/L (24-32); TOTAL PROTEIN 6.6 G/DL (6.4-8.2); eCRCL 17 ML/MIN; eGFR 17 ML/MIN
[2024-02-15 16:17] LABS: NUCLEATED RED BLOOD CELLS 2 /100WBC (0-0); PLATELET ESTIMATE DECREASED; TOTAL CELLS COUNTED 100
[2024-02-15 16:18] LABS: ANISOCYTOSIS 3+; HYPOCHROMASIA 1+; STOMATOCYTES FEW
[2024-02-15 16:19] LABS: BURR CELLS FEW; ELLIPTOCYTES FEW; POLYCHROMASIA FEW; TARGET CELLS FEW; TEAR DROP CELLS FEW
[2024-02-15] MEDS ORDERED: magnesium sulf-water 4G/100mL 100 ML IV PRN (16:35)
[2024-02-15] MEDS ORDERED: magnesium Cl slow-release 64mg tablet PO PRN (16:35)
[2024-02-15] MEDS ORDERED: magnesium sulf-water 2g/50mL 50 ML IV PRN (16:35)
[2024-02-15] MEDS ORDERED: potassium Cl 20 mEq SR tablet PO PRN (16:35)
[2024-02-15] MEDS: K and/or MAG REPLACEMENT MC SCH (20:00)
[2024-02-15] MEDS: potassium Cl 20 mEq SR tablet PO PRN (21:42)
[2024-02-15] MEDS: VANCOMYCIN LEVEL IV ONE (21:57)
[2024-02-16] VITALS (7 sets, daily range): BP systolic 112–136; BP diastolic 64–75; PULSE 70–76; RESP 15–20; TEMP 97.1–97.6; O2SAT 96–100
[2024-02-16 03:56] LABS: EOSINOPHILS % (AUTO) 0 % (0-6); LYMPHOCYTES # (AUTO) 0.5 X10'3 (1.1-4.8); MEAN PLATELET VOLUME 9.8 FL (7.4-10.4)
[2024-02-16 03:58] LABS: BASOPHILS % (AUTO) 0.2 % (0-1); HEMATOCRIT 26.3 % (35.0-45.0); HEMOGLOBIN 8.5 g/dl (12.0-16.0); LYMPHOCYTES % (AUTO) 4.4 % (21-51); MEAN CORPUSCULAR HGB CONC 32.4 g/dL (33.0-36.5); MONOCYTES # (AUTO) 0.5 X10'3 (0-0.9); MONOCYTES % (AUTO) 4.5 % (2-12); NEUTROPHILS # (AUTO) 10.4 X10'3 (1.8-7.7); NEUTROPHILS % (AUTO) 90.9 % (42-75); PLATELET COUNT 95 X10'3 (140-440); RED BLOOD COUNT 2.43 X10'6 (4.20-5.60); RED CELL DISTRIBUTION WIDTH 23.5 % (11.5-14.5); WHITE BLOOD COUNT 11.5 X10'3 (4.5-11.0)
[2024-02-16 04:08] LABS: ALBUMIN 3.2 G/DL (3.4-5.0); ANION GAP 9 (8-16); BLOOD UREA NITROGEN 85 MG/DL (7-18); BUN/CREATININE RATIO 30.6 (10.0-20.0); CALCIUM 9.7 MG/DL (8.5-10.1); CHLORIDE 98 MMOL/L (99-107); CREATININE 2.78 MG/DL (0.40-0.90); GLUCOSE 185 MG/DL (70-104); MAGNESIUM 2.1 MG/DL (1.5-2.4); PHOSPHORUS 5.3 MG/DL (2.3-4.5); POTASSIUM 3.8 MMOL/L (3.5-5.1); SODIUM 139 MMOL/L (135-145); TOTAL CARBON DIOXIDE 32.2 MMOL/L (24-32); eCRCL 16 ML/MIN; eGFR 16 ML/MIN
[2024-02-16 04:34] LABS: ANISOCYTOSIS 3+; ELLIPTOCYTES FEW; NUCLEATED RED BLOOD CELLS 2 /100WBC (0-0); PLATELET ESTIMATE DECREASED; POLYCHROMASIA FEW; STOMATOCYTES FEW; TARGET CELLS FEW; TOTAL CELLS COUNTED 100
[2024-02-16] MEDS ORDERED: vancomycin/NS 1 GM ADD-VANTAGE 250 ML IV PRN (08:25)
[2024-02-16 09:35] LABS: ALBUMIN 3.1 G/DL (3.4-5.0); ANION GAP 6 (8-16); BLOOD UREA NITROGEN 92 MG/DL (7-18); BUN/CREATININE RATIO 33.3 (10.0-20.0); CALCIUM 9.2 MG/DL (8.5-10.1); CHLORIDE 99 MMOL/L (99-107); CREATININE 2.76 MG/DL (0.40-0.90); GLUCOSE 184 MG/DL (70-104); MAGNESIUM 2.2 MG/DL (1.5-2.4); PHOSPHORUS 5.4 MG/DL (2.3-4.5); POTASSIUM 3.8 MMOL/L (3.5-5.1); SODIUM 140 MMOL/L (135-145); TOTAL CARBON DIOXIDE 35.4 MMOL/L (24-32); eCRCL 16 ML/MIN; eGFR 16 ML/MIN
[2024-02-16] MEDS: calcium acetate 667mg (PhosLO) capsule PO SCH (09:44)
[2024-02-16 13:34] LABS: ADAMTS13 ACTIVITY SEE COMMENTS
[2024-02-16] MEDS ORDERED: methylPREDNISolone sod succ 125mg/2ml vial IV SCH (20:00)
[2024-02-16] MEDS ORDERED: VANCOMYCIN LEVEL IV ONE (21:00)
== END 2024-02-16 14:00 | DRG 871 ==
LOC: ER 11:15 → ED HOLD 14:52 → PCU 3S 21:50
PROVIDERS: ADMIT Family Medicine; ATTEND Family Medicine
PROC: 05HF33Z Insertion of Infusion Device into Left Cephalic Vein, Percutaneous Approach (ICD-10-PCS; 2024-02-05)
PROC: B54NZZA Ultrasonography of Left Upper Extremity Veins, Guidance (ICD-10-PCS; 2024-02-05)
PROC: CB121ZZ Planar Nuclear Medicine Imaging of Lungs and Bronchi using Technetium 99m (Tc-99m) (ICD-10-PCS; principal; 2024-02-13)
DX: A41.89 Other specified sepsis (principal); G93.41 Metabolic encephalopathy; I33.0 Acute and subacute infective endocarditis; N18.6 End stage renal disease; I50.43 Acute on chronic combined systolic (congestive) and diastolic (congestive) heart failure; E87.1 Hypo-osmolality and hyponatremia; E87.0 Hyperosmolality and hypernatremia; D68.9 Coagulation defect, unspecified; I13.2 Hypertensive heart and chronic kidney disease with heart failure and with stage 5 chronic kidney disease, or end stage renal disease; K56.7 Ileus, unspecified; N17.9 Acute kidney failure, unspecified; N39.0 Urinary tract infection, site not specified; R18.8 Other ascites; E87.3 Alkalosis; D61.818 Other pancytopenia; Z68.38 Body mass index [BMI] 38.0-38.9, adult; B96.20 Unspecified Escherichia coli [E. coli] as the cause of diseases classified elsewhere; B96.89 Other specified bacterial agents as the cause of diseases classified elsewhere; D69.6 Thrombocytopenia, unspecified; E03.9 Hypothyroidism, unspecified; E11.22 Type 2 diabetes mellitus with diabetic chronic kidney disease; E11.65 Type 2 diabetes mellitus with hyperglycemia; E66.01 Morbid (severe) obesity due to excess calories; E78.00 Pure hypercholesterolemia, unspecified; E87.5 Hyperkalemia; E87.6 Hypokalemia; E87.8 Other disorders of electrolyte and fluid balance, not elsewhere classified; E88.09 Other disorders of plasma-protein metabolism, not elsewhere classified; I08.1 Rheumatic disorders of both mitral and tricuspid valves; I25.10 Atherosclerotic heart disease of native coronary artery without angina pectoris; I25.2 Old myocardial infarction; I27.20 Pulmonary hypertension, unspecified; I48.91 Unspecified atrial fibrillation; J44.9 Chronic obstructive pulmonary disease, unspecified; K21.9 Gastro-esophageal reflux disease without esophagitis; K31.89 Other diseases of stomach and duodenum; F41.9 Anxiety disorder, unspecified; R79.89 Other specified abnormal findings of blood chemistry; B95.8 Unspecified staphylococcus as the cause of diseases classified elsewhere; Z88.8 Allergy status to other drugs, medicaments and biological substances; Z91.011 Allergy to milk products; Z91.041 Radiographic dye allergy status; Z79.01 Long term (current) use of anticoagulants; Z80.8 Family history of malignant neoplasm of other organs or systems; Z82.49 Family history of ischemic heart disease and other diseases of the circulatory system; Z86.73 Personal history of transient ischemic attack (TIA), and cerebral infarction without residual deficits; Z88.0 Allergy status to penicillin; Z88.1 Allergy status to other antibiotic agents; Z88.2 Allergy status to sulfonamides; Z88.3 Allergy status to other anti-infective agents; Z90.710 Acquired absence of both cervix and uterus; Z95.0 Presence of cardiac pacemaker; Z95.1 Presence of aortocoronary bypass graft; Z95.2 Presence of prosthetic heart valve
CPT/HCPCS: 36410; 36415; 36600; 71045; 71250; 74018; 74176; 76770; 76937; 78582; 80048; 80053; 80061; 80069; 80202; 81001; 82550; 82803; 82948; 83010; 83036; 83540; 83550; 83605; 83615; 83690; 83735; 83880; 84100; 84132; 84145; 84155; 84156; 84165; 84166; 84439; 84443; 84484; 85007; 85008; 85018; 85025; 85045; 85379; 85397; 85610; 85730; 86140; 87040; 87077; 87081; 87088; 87186; 93005; 93306; 94640; 94664; 94668; 94760; 94799; 96365; 97110; 97162; 97530; 97535; 99285; A4314; A6213; A6250; A6258; A6260; A6449; A9539; A9540; C1751; C1758; G0378; J0692; J0696; J1250; J1815; J1940; J2270; J2405; J2919; J3370; J3480; J3490; J7030; J7040; J7050; J7070; J7120; P9047; Q4081